=== PATIENT | female | born 1975 | race Caucasian/White ===

== ENCOUNTER 2016-09-13 10:54 | Emergency (ER) | payer SELFPAY ==
[~2016-09-13] VITALS: Ht 167.6 cm; Wt 63.5 kg
[~2016-09-13 10:54] MED LIST: ATEN50TA PO; CIPR500T78 PO; D50KC PO; DESV50TA PO; DICY10CA26 PO; FRS325T PO; GABA100C PO; HYDR-757 PO; HYDR25CA5 PO; HYDR50CA3 PO; MINO100C2 PO; NITR-65 PO; ONDN4T PO; PANT40TA2 PO; SUCR1ORA5 PO; SULF1TAB35 PO; TRAM50TA2 PO
--- NOTE | 2016-09-13 11:07 | ED Lower Extremity ---
General Stated Complaint: RIGHT ANKLE PAIN/SWELLING Source: patient Exam Limitations: no limitations History of Present Illness Time seen by provider: 11:06 Initial Comments Patient states she awakened with pain and swelling on morning and has been able to bear weight until today. She denies fevers or chills. She states that she did get up during the night about one week ago and twisted her ankle and that following morning was when it became painful Onset: last week Severity: moderate Pain/Injury Location: right ankle Modifying Factors: Worse With Movement Allergies and Home Medications Allergies Coded Allergies: cephalexin (Verified Allergy, Unknown, 11/01/13) Constitutional: see HPI, No chills, No fever EENTM: see HPI Respiratory: no symptoms reported Cardiovascular: no symptoms reported Genitourinary: no symptoms reported Musculoskeletal: see HPI Skin: no symptoms reported Psychiatric/Neurological: No Symptoms Reported Past Vjvapew-Ocfdvf-Cfwlhg Hx Patient Social History Recent Foreign Travel: No Contact w/Someone Who Travel: No Recent Hopitalizations: No Immunizations Up To Date Tetanus Booster (TDap): Unknown Date of Pneumonia Vaccine: Jun 09, 2009 Surgeries HX Surgeries: Yes ( X 1) Surgeries: Adenoidectomy, Section, Gallbladder, Tonsillectomy, Tubal Ligation Respiratory Hx Respiratory Disorders: No Cardiovascular Hx Cardiac Disorders: No Neurological Hx Neurological Disorders: No 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 System Hx 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 Disorders: Yes 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 Genitourinary Hx Genitourinary Disorders: No Gastrointestinal Hx Gastrointestinal Disorders: Yes Gastrointestinal Disorders: Gastroesophageal Reflux, C-Diff Musculoskeletal Hx Musculoskeletal Disorders: Yes Musculoskeletal Disorders: Fibromyalgia, Rheumatoid Arthritis Endocrine Hx Endocrine Disorders: No HEENT HX ENT Disorders: No Cancer Hx Cancer: No Psychosocial Hx Psychiatric Problems: Yes Behavioral Health Disorders: ADD/ADHD, Anxiety, PTSD, Depression Integumentary HX Skin/Integumentary Disorder: Yes (HX OF MRSA/ABSCESSES) Blood Transfusions Hx Blood Disorders: No Family Medical History Significant Family History: No Pertinent Family Hx Family Medial History: Cancer 19 FATHER Family history: Diabetes mellitus 19 MOTHER Family history: Hypertension 19 MOTHER Hearing loss 19 MOTHER Hypercholesterolemia 19 MOTHER Physical Exam Vital Signs Vital Sign - Last 12Hours 09/13/16 11:20 B/P (MAP) 116/80 Pulse Ox 98 Capillary Refill : General Appearance: WD/WN, no apparent distress, other (lip smacking, unable to sit still, constantly moving, talking very fast. Appears to be under the influence of a stimulant) HEENT: PERRL/EOMI, normal ENT inspection Neck: non-tender, full range of motion Respiratory: normal breath sounds, no respiratory distress, no accessory muscle use Gastrointestinal: normal bowel sounds, non tender, soft Hips: bilateral hip non-tender, bilateral hip normal inspection, bilateral hip normal range of motion Legs: bilateral leg non-tender, bilateral leg normal inspection, bilateral leg normal range of motion Knees: bilateral knee non-tender, bilateral knee normal inspection, bilateral knee normal range of motion Ankles: right ankle pain, right ankle soft tissue tenderness, right ankle swelling Feet: bilateral foot non-tender, bilateral foot normal inspection, bilateral foot normal range of motion Neurologic/Tendon: normal sensation, normal motor functions Neurologic/Psychiatric: alert, normal mood/affect, oriented x 3 Skin: normal color, warm/dry Comments She has a strong dorsalis pedis pulse Progress/Results/Core Measures Results/Orders My Orders Orders - MAINOR LANE APRN Ankle, Right, 3 Views (09/13/16 11:05) Vital Signs/I&O Vital Sign - Last 12Hours 09/13/16 11:20 B/P (MAP) 116/80 Pulse Ox 98 Departure Impression Impression: Primary Impression: Ankle sprain Disposition: 01 HOME, SELF-CARE Condition: Stable Departure-Patient Inst. Decision time for Depature: 11:46 Referrals: [facility] (PCP/Family) Primary Care Physician Patient Instructions: Ankle Sprain (DC) Add. Discharge Instructions: 1. Medication as directed 2. Crutches as needed 3. Return to ER for any worsening, worsening redness or swelling or fevers 4. See your doctor next week Scripts Naproxen (Naprosyn) 500 Mg Tablet 500 MG PO BID, #30 TAB Prov: MAINOR LANE APRN 09/13/[address] APRN Sep 13, 2016 11:07
--- NOTE | 2016-09-13 11:40 | Diagnostic Imaging Report ---
Three views of the right ankle. INDICATION: Right ankle pain. FINDINGS: There is no fracture, dislocation or radiopaque from body. There is mild medial soft tissue swelling seen. The ankle mortise is normal in configuration. There is calcaneal spur seen. IMPRESSION: No fracture seen. Dictated by: Dictated on workstation # [id number]
[2016-09-13] MEDS ORDERED: NAPR500T PO (11:47)
[2016-09-13 12:51] VITALS: BP 115/72
--- OUTSIDE RECORDS SUMMARY | 2016-10-17 21:43 | XMS REPORT | Continuity of Care Document ---
Author Author [facility] Organization [facility] Address Unknown Phone Unavailable Care Team Providers Care Manager Safe Name Role Phone [facility] OF Insurance Providers Payer Name Policy Number Subscriber Name Relationship Self Pay Lakia Gibbons 01 Self / Same As Patient Advance Directives Directive Response Recorded Date Advance Directives N 04/05/13 9:57am Health Care Power of Electromechanisms Design Drafter N 04/05/13 9:57am Organ Donor N 04/05/13 9:57am Problems No Known Problems or Medical conditions. Social History History Response Recorded Date/Time Alcohol Use Denies Use 04/05/13 9:57am Recreational Drug Use N denies 04/05/13 9 :57am Allergies, Adverse Reactions, Alerts Allergen Type Severity Reaction Last Updated Cephalexin Allergy 11/02/11 Sulfamethoxazole Allergy 11/02/11 trimethoprim Allergy 11/02/11 Medications Medication Dose Units Route Sig Qty Days Tramadol Hcl 50 Mg PO Q4H PRN 10 Ergocalciferol (Vitamin D) 42358 Unit PO TWICE WEEKLY Ferrous Sulfate (Iron) 1 Tab PO DAILY Hydroxyzine Pamoate (Hydroxyzine Pamoate 50 Mg Cap) 1 Each PO HS Hydroxyzine Pamoate (Vistaril) 25 Mg PO TID Desvenlafaxine Succinate (Pristiq) 50 Mg PO DAILY Gabapentin (Neurontin) 1 - 2 Each PO TID Dicyclomine HCl (Bentyl) 1 Each PO AC 20 Ondansetron HCl (Zofran) 1 Tab PO BID PRN 20 Atenolol (Tenormin 50 Mg) 1 Each PO DAILY Response Recorded Date/Time Status not known Unknown Results No Known Relevant Diagnostic Tests, Laboratory Data and/or Discharge Summary. Encounters Encounter Location Date/Time Departed Emergency Room [facility] 9:49am Registered Emergency Room [facility] 12:00am
--- OUTSIDE RECORDS SUMMARY | 2016-10-17 21:43 | XMS REPORT ---
Author EMILIA Ovalles [facility] eClinicalWorks Address Unknown Phone Unavailable Care Team Providers Care Shaper Set Up Operator Name Role Phone EMILIA HAM CP Unavailable Allergies, Adverse Reactions, Alerts Substance Reaction Event Type Minocycline Info Not Available Drug Allergy Doxycycline Info Not Available Drug Allergy Problems Problem Type Condition Code Onset Dates Condition Status Problem Lumbago 724.2 Active Problem Unspecified hereditary and idiopathic peripheral neuropathy 356.9 Active Problem Cellulitis and abscess of hand, except fingers and thumb 682.4 Active Problem Unspecified contraceptive management V25.9 Active Problem Migraine, unspecified without mention of intractable migraine without mention of status migrainosus 346.90 Active Problem Stye H00.019 Active Problem Esophageal reflux 530.81 Active Problem Other, multiple, and unspecified sites, insect bite, nonvenomous, without mention of infection 919.4 Active Problem Unspecified alopecia 704.00 Active Problem Rheumatoid arthritis 714.0 Active Problem Other general counseling and advice for contraceptive management V25.09 Active Problem Irregular menstrual cycle 626.4 Active Assessment Stye H00.019 Active Problem Other symptoms involving urinary system 788.99 Active Problem Surveillance of other previously prescribed contraceptive method V25.49 Active Problem Contusion of forearm 923.10 Active Problem Encounter for long-term (current) use of other medications V58.69 Active Problem Cellulitis and abscess of upper arm and forearm 682.3 Active Problem Pain in soft tissues of limb 729.5 Active Medications Medication Code System Code Instructions Start Date End Date Status Dosage Gentamicin Sulfate [facility] [address]-24 0.3 % Ophthalmic 3 times a day Mar 3 drop into affected eye PredniSONE [facility] [address]-33 10 MG Orally 2 times a day Apr 01, 2015 Apr 06, 2015 1 tablet with food or milk Procedures Procedure Coding System Code Date Office Visit, Est Pt., Level 3 CPT-4 37454 Apr 01, 2015 Vital Signs Date/Time: Apr 01, 2015 Temperature 98.3 F Weight 174.8 lbs Height 64 in BMI 30.00 Index Blood Pressure Diastolic 78 mmHg Blood Pressure Systolic 128 mmHg Cardiac Monitoring Heart Rate 104 bpm Results No Known Results Summary Purpose eClinicalWorks Submission
--- OUTSIDE RECORDS SUMMARY | 2016-10-17 21:44 | XMS REPORT ---
Author Author EMILIA HAM [facility] eClinical[employer] Address Unknown Phone Unavailable Care Team Providers Care Dimpling Machine Operator Name Role Phone EMILIA HAM Unavailable Allergies No Known Allergies Problems Problem Type Condition Code Onset Dates [...] Active Problem Irregular menstrual cycle 626.4 Active Problem Other symptoms involving urinary system [...] Instructions Start Date End Date Status Dosage Bactrim DS [facility] [address]-69 800-160 MG Orally 2 times a day Apr 04, 2015 Apr 14, 2015 1 tablet Results No Known Results Summary Purpose eClinicalWorks Submission
--- OUTSIDE RECORDS SUMMARY | 2016-10-17 21:44 | XMS REPORT ---
Author HANK Hoffmann [facility] eClinicalWorks Address Unknown Phone Unavailable Care Team Providers Care Pneumatic Tube Fitter Name Role Phone HANK HIDALGO CP Unavailable Allergies No Known Allergies Problems Problem Type Condition Code Onset Dates Condition Status Problem Rheumatoid arthritis 714.0 Active Problem Esophageal reflux 530.81 Active Problem Stye H00.019 Active Problem Irregular menstrual cycle 626.4 Active Problem Unspecified hereditary and idiopathic peripheral neuropathy 356.9 Active Problem Lumbago 724.2 Active Medications No Known Medications Results No Known Results Summary Purpose eClinicalWorks Submission
--- OUTSIDE RECORDS SUMMARY | 2016-10-17 21:44 | XMS REPORT | Continuity of Care Document ---
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 test strip, semi-quantitative NEGATIVE NEGATIVE Urine glucose detection by automated test strip NEGATIVE NEGATIVE Erythrocytes detection in urine sediment by light microscopy 1+ NEGATIVE Urine ketones detection by automated test strip NEGATIVE NEGATIVE Urine nitrite detection by test strip POSITIVE NEGATIVE Urine total bilirubin detection by test strip NEGATIVE NEGATIVE Urine urobilinogen measurement by automated test strip (mass/volume) NORMAL NORMAL Urine leukocyte esterase detection by dipstick 1+ NEGATIVE Automated urine sediment erythrocyte count by microscopy (number/high power field) NONE NRG Automated urine sediment leukocyte count by microscopy (number/high power field ) TNTC NRG Bacteria detection in urine sediment by light microscopy LARGE NRG Squamous epithelial cells detection in urine sediment by light microscopy 5-10 NRG Crystals detection in urine sediment by light microscopy NONE NRG Casts detection in urine sediment by light microscopy NONE NRG Mucus detection in urine sediment by light microscopy NEGATIVE NRG Complete urinalysis with reflex to culture YES NRG Urine drug screening test - 02/10/16 10:20 Urine phencyclidine detection by screening method NEGATIVE NEGATIVE Urine benzodiazepines detection by screening method NEGATIVE NEGATIVE Urine cocaine detection NEGATIVE NEGATIVE Urine amphetamines detection by screening method NEGATIVE NEGATIVE Urine methamphetamine detection by screening method NEGATIVE NEGATIVE Urine cannabinoids detection by screening method NEGATIVE NEGATIVE Urine opiates detection by screening method NEGATIVE NEGATIVE Urine barbiturates detection NEGATIVE NEGATIVE Screening urine tricyclic antidepressants detection NEGATIVE NEGATIVE Urine methadone detection by screening method NEGATIVE NEGATIVE Urine oxycodone detection NEGATIVE NEGATIVE Urine propoxyphene detection NEGATIVE NEGATIVE Urine buprenophrine screen NEGATIVE NEGATIVE Bacterial urine culture - 02/10/16 10:20 Bacterial urine culture [id number] NRG COLONY COUNT >100,000/ML NRG FTX;REPORTABLE SENSITIVITY REPORTED 02/11 11:25 NRG URINE CULTURE RESULTS <10,000/ML NRG FREE TEXT ENTRY 2 (2 COLONY TYPES OF E COLI ISOLATED) NRG FREE TEXT ENTRY 3 MIXED GRAM POSITIVE QUENTIN <10,000/ML NRG Bacterial susceptibility panel - 02/10/16 10:20 Gentamicin susceptibility test by minimum inhibitory concentration >= NRG Trimethoprim/sulfamethoxazole susceptibility test by minimum inhibitoryconcentration >= NRG Ampicillin susceptibility test by minimum inhibitory concentration >= NRG Tobramycin susceptibility test by minimum inhibitory concentration 8 NRG Cefazolin susceptibility test by minimum inhibitory concentration <= NRG Ceftriaxone susceptibility test by minimum inhibitory concentration <= NRG Ampicillin/sulbactam susceptibility test by minimum inhibitory concentration 16 NRG Piperacillin/tazobactam susceptibility test by minimum inhibitory concentration <= NRG Ciprofloxacin susceptibility test by minimum inhibitory concentration >= NRG Meropenem susceptibility test by minimum inhibitory concentration <= NRG Nitrofurantoin susceptibility test by minimum inhibitory concentration <= NRG Aztreonam susceptibility test by minimum inhibitory concentration <= NRG Extended spectrum beta lactamase (ESBL) producing bacteria susceptibility test by minimum inhibitory concentration - NRG Complete blood count (CBC) with automated white blood cell (WBC) differential - 02/10/16 10:30 Blood leukocytes automated count (number/volume) 10.1 10*3/ uL 4.3-11.0 Blood erythrocytes automated count (number/volume) 4.73 10*6 /uL 4.35-5.85 Venous blood hemoglobin measurement (mass/volume) 13.2 g/dL 11.5-16.0 Blood hematocrit (volume fraction) 39 % 35-52 Automated erythrocyte mean corpuscular volume 83 [foz_us] 80-99 Automated erythrocyte mean corpuscular hemoglobin (mass per erythrocyte) 28 pg 25-34 Automated erythrocyte mean corpuscular hemoglobin concentration measurement ( mass/volume) 34 g/dL 32-36 Automated erythrocyte distribution width ratio 15.2 % 10.0-14.5 Automated blood platelet count (count/volume) 247 10*3/uL 130-400 Automated blood platelet mean volume measurement 11.8 [foz_ us] 7.4-10.4 Automated blood neutrophils/100 leukocytes 76 % 42-75 Automated blood lymphocytes/100 leukocytes 15 % 12-44 Blood monocytes/100 leukocytes 8 % 0-12 Automated blood eosinophils/100 leukocytes 1 % 0-10 Automated blood basophils/100 leukocytes 0 % 0-10 Blood neutrophils automated count (number/volume) 7.7 10*3 1.8-7.8 Blood lymphocytes automated count (number/volume) 1.5 10*3 1.0-4.0 Blood monocytes automated count (number/volume) 0.8 10*3 0.0-1.0 Automated eosinophil count 0.1 10*3/uL 0.0-0.3 Automated blood basophil count (count/volume) 0.0 10*3/uL 0.0-0.1 Comprehensive metabolic panel - 02/10/16 10:30 Serum or plasma sodium measurement (moles/volume) 138 mmol/ L 135-145 Serum or plasma potassium measurement (moles/volume) 4.4 mmol/L 3.6-5.0 Serum or plasma chloride measurement (moles/volume) 107 mmol /L 98-107 Carbon dioxide 20 mmol/L 21-32 Serum or plasma anion gap determination (moles/volume) 11 mmol/L 5-14 Serum or plasma urea nitrogen measurement (mass/volume) 8 mg /dL 7-18 Serum or plasma creatinine measurement (mass/volume) 0.72 mg /dL 0.60-1.30 Serum or plasma urea nitrogen/creatinine mass ratio 11 NRG Serum or plasma creatinine measurement with calculation of estimated glomerular filtration rate > NRG Serum or plasma glucose measurement (mass/volume) 96 mg/dL 70-105 Serum or plasma calcium measurement (mass/volume) 9.5 mg/dL 8.5-10.1 Serum or plasma total bilirubin measurement (mass/volume) 0.4 mg/dL 0.1-1.0 Serum or plasma alkaline phosphatase measurement (enzymatic activity/volume) 57 U/L 40-136 Serum or plasma aspartate aminotransferase measurement (enzymatic activity/ volume) 33 U/L 5-34 Serum or plasma alanine aminotransferase measurement (enzymatic activity/volume ) 56 U/L 0-55 Serum or plasma protein measurement (mass/volume) 6.6 g/dL 6.4-8.2 Serum or plasma albumin measurement (mass/volume) 3.8 g/dL 3.2-4.5 Serum or plasma amylase measurement (enzymatic activity/volume) - 02/10/16 10: 30 Serum or plasma amylase measurement (enzymatic activity/volume) 31 U/L 25-125 Lipase - 02/10/16 10:30 Lipase 7 U/L 8-78 Serum or plasma ethanol measurement (mass/volume) - 02/10/16 10:30 Serum or plasma ethanol measurement (mass/volume) < mg/dL <10 Encounters ACCT No. Visit Date/Time Discharge Status Pt. Type Provider Facility Loc./Unit Complaint [id number] 03/15/2014 10:47:00 03/15/2014 23: 59:59 CLS Outpatient HIDALGO DO, HANK K [id number] 12/27/2013 07:01:00 12/27/2013 23: 59:59 CLS Outpatient [id number] 12/21/2013 11:39:00 12/21/2013 23: 59:59 CLS Outpatient [id number] 12/16/2013 07:46:00 12/16/2013 23: 59:59 CLS Outpatient SWAPNA CLAY MD [id number] 12/02/2013 12:41:00 12/02/2013 23: 59:59 CLS Outpatient ELIZABETH ELIANE AGUIAR [id number] 11/30/2013 10:01:00 11/30/2013 23: 59:59 CLS Outpatient HANK HIDALGO DO [id number] 11/29/2013 13:37:00 11/29/2013 23: 59:59 CLS Outpatient SHANNAN CB AGUIAR [id number] 09/28/2012 11:35:00 09/28/2012 23: 59:59 CLS Outpatient STEPHANIE ROSS PA-C [id number] 07/17/2012 10:03:00 07/17/2012 23: 59:59 CLS Outpatient HANK HIDALGO DO [id number] 05/29/2012 10:36:00 05/29/2012 23: 59:59 CLS Outpatient HANK HIDALGO DO [id number] 04/14/2012 11:05:00 04/14/2012 23:59 :59 CLS Outpatient HANK HIDALGO DO
--- OUTSIDE RECORDS SUMMARY | 2016-10-17 21:44 | XMS REPORT ---
Author Author SWAPNA CLAY [employer] Address Unknown Phone Unavailable Care Team Providers Care Healthcare Account Manager Name Role Phone SWAPNA CLAY CP Unavailable Allergies, Adverse Reactions, Alerts Substance Reaction Event Type Minocycline Info Not Available Drug Allergy Doxycycline Info Not Available Drug Allergy Problems Problem Type Condition Code Onset Dates Condition Status Assessment Acute cystitis without hematuria N30.00 Active Problem Rheumatoid arthritis 714.0 Active Problem Esophageal reflux 530.81 Active Problem Stye H00.019 Active Problem Irregular menstrual cycle 626.4 Active Assessment Dysuria R30.0 Active Problem Unspecified hereditary and idiopathic peripheral neuropathy 356.9 Active Problem Lumbago 724.2 Active Medications Medication Code System Code Instructions Start Date End Date Status Dosage Macrobid [facility] [address]-21 100 MG Orally every 12 hrs Apr 26, 2016Apr 1 capsule with food Procedures Procedure Coding System Code Date Office Visit, Est Pt., Level 2 CPT-4 96923 Apr 26, 2016 URINALYSIS, AUTO, W/O SCOPE CPT-4 50758 Apr 26, 2016 Vital Signs Date/Time: Apr 26, 2016 Cardiac Monitoring Heart Rate 98 bpm Weight 186.7 lbs Height 64 in BMI 32.04 Index Blood Pressure Diastolic 70 mmHg Blood Pressure Systolic 116 mmHg Results Name Result Date Reference Range Unit Abnormality Flag UA LONG DIP (IN HOUSE) ----SONIA 1+ 20160426 ----NIT POSITIVE 20160426 ----SG 1.020 20160426 ----KET Negative [id number] ----VINCENT Negative [id number] ----GLU Negative [id number] ----Odor Yes [id number] ----pH 7.0 20160426 ----BLO Negative [id number] ----URO 1.0 [id number] ----Protein Negative [id number] ----Lot # [id number] ----Exp date [id number] ----Clarity Clear [id number] ----Color Yellow [id number] Summary Purpose eClinicalWorks Submission
--- OUTSIDE RECORDS SUMMARY | 2016-10-17 21:45 | XMS REPORT ---
Author Author EMILIA HAM [facility] e[employer] Address Unknown Phone Unavailable Care Team Providers Care Veterinary Practitioner Name Role Phone EMILIA HAM Unavailable Allergies [...] soft tissues of limb 729.5 Active Medications No Known Medications Results No Known Results Summary Purpose eClinicalWorks Submission
--- OUTSIDE RECORDS SUMMARY | 2016-10-17 21:45 | XMS REPORT ---
Author Author EMILIA HAM [facility] e[employer] Address Unknown Phone Unavailable Care Team Providers Care Piece Maker Name Role Phone EMILIA HAM Unavailable Allergies [...]
== END 2016-09-13 12:51 | disposition home or self-care (01) ==
LOC: EDUNIT# 10:54 → ER 10:57
DX: S93.401A Sprain of unspecified ligament of right ankle, initial encounter (principal); X50.9XXA Other and unspecified overexertion or strenuous movements or postures, initial encounter; Y92.009 Unspecified place in unspecified non-institutional (private) residence as the place of occurrence of the external cause; Y99.8 Other external cause status
CPT/HCPCS: 73610; 99284

== ENCOUNTER 2018-02-15 14:05 | Emergency (ER) | payer SELFPAY ==
[~2018-02-15] VITALS: Ht 162.6 cm; Wt 81.6 kg
[~2018-02-15 14:05] MED LIST changes: +HYDR-4226 PO; -HYDR-757 PO; +NAPR-1071 PO
--- NOTE | 2018-02-15 15:06 | ED EENT ---
History of Present Illness General Chief Complaint: Dental Problems/Pain Stated Complaint: DENTAL PAIN Nursing Triage Note: ARRIVED VIA AMB TO ROOM 06. COMPLAINS OF LEFT SIDED DENTAL PAIN. WENT TO DENTIST THRDAY TO HAVE IT PULLED BUT SHE OWED $100. STATES SHE NEEDS A ABX. Source: patient Exam Limitations: no limitations History of Present Illness Date Seen by Provider: Feb 15, 2018 Time Seen by Provider: 15:04 Initial Comments Patient is a 43-year-old female who presents to the emergency room with complaints of left upper dental pain for a week. She has several dental caries and reports that she tried to make an appointment with [facility] to have it pulled but she oh to $100 on her bill and they would not see her. She thinks that she might have an infection. Denies fevers or drainage. Timing/Duration: gradual Severity: mild Location: dental Associated Symptoms: tooth pain Allergies and Home Medications Allergies Coded Allergies: cephalexin (Verified Allergy, Unknown, 11/01/13) Home Medications Amoxicillin/Potassium Clav 1 Each Tablet, 1 EACH PO BID Prescribed by: ELENO GARG on 02/15/18 1508 Patient Home Medication List Home Medication List Reviewed: Yes Review of Systems Review of Systems Constitutional: see HPI; No chills, No fever Mouth: see HPI, pain (dental pain and swelling.) All Other Systems Reviewed Negative Unless Noted: Yes Past Dtofebm-Trnxfz-Fdmduy Hx Past Med/Social Hx: Reviewed Nursing Past Med/Soc Hx Patient Social History Alcohol Use: Denies Use Recreational Drug Use: No Smoking Status: Never a Smoker Recent Foreign Travel: No Contact w/Someone Who Travel: No Recent Infectious Disease Expo: No Recent Hopitalizations: No Immunizations Up To Date Tetanus Booster (TDap): Unknown Date of Pneumonia Vaccine: Jun 09, 2009 Past Medical History Surgeries: Yes ( X 1) Adenoidectomy, Section, Gallbladder, Tonsillectomy, Tubal Ligation Respiratory: No Cardiac: No Neurological: No 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 Disorders: Yes Female 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 Disorders: 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 Gastrointestinal: Yes Gastroesophageal Reflux, C-Diff Musculoskeletal: Yes Fibromyalgia, Rheumatoid Arthritis Endocrine: No Cancer: No Psychosocial: Yes ADD/ADHD, Anxiety, PTSD, Depression Integumentary: Yes (HX OF MRSA/ABSCESSES) Blood Disorders: No Family Medical History Reviewed Nursing Family Hx Cancer 19 FATHER Family history: Diabetes mellitus 19 MOTHER Family history: Hypertension 19 MOTHER Hearing loss 19 MOTHER Hypercholesterolemia 19 MOTHER No Pertinent Family Hx Physical Exam Vital Signs Vital Signs - First Documented 02/15/18 14:47 Temp 98.0 Pulse 99 Resp 16 B/P (MAP) 141/99 (113) Pulse Ox 99 Height, Weight, BMI Height: 5'4.00" Weight: 180lbs. oz. 81.161056yh; 29.86 BMI Method:Stated General Appearance: WD/WN, no apparent distress Eyes: bilateral eye normal inspection, bilateral eye PERRL, bilateral eye EOMI Mouth/Throat: normal mouth inspection, pharynx normal, dental tenderness (left upper and noted on images.) Neck: non-tender, full range of motion, supple, normal inspection Cardiovascular: normal peripheral pulses, regular rate, rhythm, no edema, no gallop, no JVD, no murmur Respiratory: chest non-tender, lungs clear, normal breath sounds, no respiratory distress, no accessory muscle use Neurologic/Psychiatric: alert, normal mood/affect, oriented x 3 Progress/Results/Core Measures Results/Orders My Orders Vital Signs/I&O Blood Pressure Mean: 113 Progress Progress Note : Time: 15:09 Progress Note I have seen and evaluated the patient. I will be treating her dental infection with Augmentin. She reports that she does not have an allergy to this medication. She is instructed follow up with [facility] within 1 week for recheck. She agrees with the plans of care and return precautions were given. Departure Impression Primary Impression: Dental infection Disposition: 01 HOME, SELF-CARE Condition: Stable/Unchanged Departure-Patient Inst. Decision time for Depature: 15:06 Referrals: [facility] (PCP/Family) Primary Care Physician Patient Instructions: Dental Pain (DC), Tooth Abscess (DC) Add. Discharge Instructions: Take medication as directed. Follow up with [facility] within 1 week for recheck. Take ibuprofen and Tylenol as directed by the bottle for pain relief. Return back to the emergency room for worsening symptoms or concerns as needed. All discharge instructions reviewed with patient and/or family. Voiced understanding. Scripts Amoxicillin/Potassium Clav (Augmentin 875-125 Tablet) 1 Each Tablet 1 EACH PO BID for 10 Days, #20 TAB Prov: ELENO GARG 02/15/18 Images Mouth/Nose 1 - Caries, Swelling, Tenderness ELENO GARG Feb 15, 2018 15:06
[2018-02-15] MEDS ORDERED: AMOX-358 PO (15:08)
[2018-02-15] MEDS ORDERED: HYDROcodone/APAP 5 MG/325 MG (LORTAB) TAB PO ONE (15:15)
[2018-02-15] MEDS ORDERED: AUGMENTIN 875 MG TAB (AMOXICILLIN/CLAVULANATE) PO SCH (15:15)
[2018-02-15 15:20] VITALS: BP 141/99
== END 2018-02-15 15:00 | disposition home or self-care (01) ==
LOC: EDUNIT# 14:05 → ER 14:06
DX: K04.7 Periapical abscess without sinus (principal); K21.9 Gastro-esophageal reflux disease without esophagitis; M06.9 Rheumatoid arthritis, unspecified; F90.9 Attention-deficit hyperactivity disorder, unspecified type; F43.10 Post-traumatic stress disorder, unspecified; F41.9 Anxiety disorder, unspecified; F32.9 Major depressive disorder, single episode, unspecified; Z82.49 Family history of ischemic heart disease and other diseases of the circulatory system; Z88.1 Allergy status to other antibiotic agents; Z98.51 Tubal ligation status; Z90.89 Acquired absence of other organs; Z98.890 Other specified postprocedural states; Z87.19 Personal history of other diseases of the digestive system
CPT/HCPCS: 99283

== ENCOUNTER 2019-02-20 18:31 | Emergency (ER) | payer SELFPAY ==
[~2019-02-20] VITALS: Ht 162.5 cm; Wt 88.0 kg
[~2019-02-20 18:31] MED LIST changes: +AMOX-358 PO
[2019-02-20] MEDS ORDERED: SODIUM BICARB 8.4% 50 MEQ/50 ML VIAL JT ONE (18:45)
[2019-02-20] MEDS ORDERED: LIDOCAINE 1% INJ 20 ML 20 ML VIAL INJ ONE (18:45)
[2019-02-20] MEDS ORDERED: TRIM/SULFAMETH 160/800 (SEPTRA DS) TAB PO ONE (18:45)
--- NOTE | 2019-02-20 18:48 | ED Integumentary General ---
General Chief Complaint: Skin/Wound Problems Stated Complaint: THING UNDER ARM Nursing Triage Note: AREA OF CONCERN UNDER L ARM Source: patient Exam Limitations: no limitations History of Present Illness Date Seen by Provider: Feb 20, 2019 Time Seen by Provider: 18:48 Initial Comments Left axillary reddened bump for 2 days Timing/Duration: getting worse Severity: moderate Location: extremities (axilla) Associated Symptoms: denies symptoms Allergies and Home Medications Allergies Coded Allergies: cephalexin (Verified Allergy, Unknown, 11/01/13) Patient Home Medication List Home Medication List Reviewed: Yes Review of Systems Review of Systems Constitutional: see HPI EENTM: see HPI Respiratory: no symptoms reported Cardiovascular: no symptoms reported Genitourinary: no symptoms reported Musculoskeletal: no symptoms reported Skin: see HPI Psychiatric/Neurological: No Symptoms Reported Past Qlkrztz-Nzqwza-Qzwnyn Hx Patient Social History Alcohol Use: Denies Use Recreational Drug Use: No Smoking Status: Never a Smoker Recent Foreign Travel: No Contact w/Someone Who Travel: No Recent Infectious Disease Expo: No Recent Hopitalizations: No Immunizations Up To Date Tetanus Booster (TDap): Unknown Date of Pneumonia Vaccine: Jun 09, 2009 Past Medical History Surgeries: Yes ( X 1) Adenoidectomy, Section, Gallbladder, Tonsillectomy, Tubal Ligation Respiratory: No Cardiac: No Neurological: No 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 Disorders: Yes 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 Gastrointestinal: Yes Gastroesophageal Reflux, C-Diff Musculoskeletal: Yes Fibromyalgia, Rheumatoid Arthritis Endocrine: No Cancer: No Psychosocial: Yes ADD/ADHD, Anxiety, PTSD, Depression Integumentary: Yes (HX OF MRSA/ABSCESSES) Blood Disorders: No Family Medical History Cancer 19 FATHER Family history: Diabetes mellitus 19 MOTHER Family history: Hypertension 19 MOTHER Hearing loss 19 MOTHER Hypercholesterolemia 19 MOTHER No Pertinent Family Hx Physical Exam Vital Signs Vital Signs - First Documented 02/20/19 18:38 Temp 36.6 Pulse 87 Resp 18 B/P (MAP) 125/84 (98) Pulse Ox 98 O2 Delivery Room Air Capillary Refill : Less Than 3 Seconds General Appearance: WD/WN, no apparent distress Respiratory: no respiratory distress, no accessory muscle use Extremities: normal range of motion, non-tender Neurologic/Psychiatric: alert, normal mood/affect, oriented x 3 Skin: normal color, warm/dry Skin Problem Character: abscess, other (1 cm abscess of left axilla without surrounding cellulitis) Procedures/Interventions I&D : Blade Size: 11 Progress Anesthetize the overlying skin with 1 mL of 1% lidocaine without epinephrine, incised with an 11 blade scalpel, moderate amount of purulent material expressed. Progress/Results/Core Measures Results/Orders My Orders Orders - MAINOR LANE APRN Lidocaine 1% Inj 20 Ml (Xylocaine 1% Inj (02/20/19 18:45) Sodium Bicarbonate 8.4% Vial (Sodium Bic (02/20/19 18:45) Sulfamethoxazole/Trimet Ds Tab (Bactrim (02/20/19 18:45) Wound Culture (02/20/19 18:44) Medications Given in ED Current Medications Medications Dose Ordered Sig/Ryan Route Start Time Stop Time Status Last Admin Dose Admin Trimethoprim/ Sulfamethoxazole 1 ea ONCE ONCE PO 02/20/19 18:45 02/20/19 18:47 DC 02/20/19 18:51 1 EA Vital Signs/I&O 02/20/19 18:38 Temp 36.6 Pulse 87 Resp 18 B/P (MAP) 125/84 (98) Pulse Ox 98 O2 Delivery Room Air Blood Pressure Mean: 98 Departure Impression Primary Impression: Abscess Disposition: 01 HOME, SELF-CARE Condition: Stable Departure-Patient Inst. Decision time for Depature: 18:50 Ref[facility]: [facility] Primary Care Physician Patient Instructions: Skin Abscess Add. Discharge Instructions: 1. Change the dressing as needed 2. Return to ER for any concerns 3. All discharge instructions reviewed with patient and/or family. Voiced understanding. MAINOR LANE APRN Feb 20, 2019 18:48
[2019-02-20 19:02] VITALS: BP 125/84
== END 2019-02-20 19:02 | disposition home or self-care (01) ==
LOC: EDUNIT# 18:31 → ER 18:33
DX: L02.412 Cutaneous abscess of left axilla (principal); F90.9 Attention-deficit hyperactivity disorder, unspecified type; F41.9 Anxiety disorder, unspecified; F32.9 Major depressive disorder, single episode, unspecified; F43.10 Post-traumatic stress disorder, unspecified; K21.9 Gastro-esophageal reflux disease without esophagitis; M79.7 Fibromyalgia; M06.9 Rheumatoid arthritis, unspecified; Z88.1 Allergy status to other antibiotic agents; Z90.89 Acquired absence of other organs; Z98.51 Tubal ligation status; Z82.49 Family history of ischemic heart disease and other diseases of the circulatory system
CPT/HCPCS: 10060; 87070; 87077; 87186; 87205

== ENCOUNTER → 2021-08-20 | Outpatient (CLI) | payer OTHER ==
[~2021-08-20] VITALS: Ht 163 cm; Wt 94.0 kg
[~2021-08-20] MED LIST changes: +LIDOCAINE 1% INJ 20 ML VIAL INJ ONE; -MINO100C2 PO; +MINO100C5 PO; -SULF1TAB35 PO; +SULF1TAB38 PO; +TRM50T PO
--- NOTE | 2021-08-20 13:33 | Diagnostic Imaging Report ---
INDICATION: Right breast calcifications. Patient presents for a stereotactic biopsy. DETAILS OF THE PROCEDURE: The patient was brought to the mammographic suite and placed in a chair in the sitting upright position. The right breast was positioned lateral medial. The calcifications in the slightly outer right breast at mid depth were stereotactically targeted. The lateral right breast was prepped and draped in the usual sterile fashion. A small amount of 1% lidocaine was utilized for local anesthesia. An 8 gauge needle was advanced from a lateral medial approach and placed with its tip per stereotactic coordinates. Four core biopsies were obtained. A specimen radiograph was obtained demonstrating a cluster of microcalcifications within specimen labeled #4. Four additional core biopsies were obtained with only a small calcification noted within specimen labeled #10. The biopsies were performed with an 8 gauge vacuum-assisted device. All images were viewed on a dedicated workstation. A marker clip was then deployed. The needle was removed and hemostasis was obtained. A post procedure 2D CC and ML mammogram was then performed. The mammogram does show a marker clip more medial than expected on the CC view, suggestive of clip migration. IMPRESSION: Successful stereotactic biopsy of right breast calcifications. Pathology results are currently pending. Note is made that the clip does appear to be somewhat medially migrated. Dictated by: Dictated on workstation # [id number]
== END ==
LOC: RAD 12:45
PROVIDERS: ATTEND Pediatrics
DX: R92.1 Mammographic calcification found on diagnostic imaging of breast (principal)
CPT/HCPCS: 19081; A4648

== ENCOUNTER 2021-10-01 11:44 | Outpatient (RCR) | payer MEDICAID, OTHER ==
[~2021-10-01 11:44] MED LIST changes: -LIDOCAINE 1% INJ 20 ML VIAL INJ ONE
[2021-10-02] MEDS ORDERED: OMEP20TA56 PO (16:15)
[2021-10-02] MEDS ORDERED: LISI20TA26 PO (16:15)
[2021-10-02] MEDS ORDERED: CARI3CAP PO (16:15)
[2021-10-02] MEDS ORDERED: SOFO1TAB PO (16:15)
== END 2021-10-06 | disposition home or self-care (01) ==
LOC: ONC 11:44
PROVIDERS: ATTEND Internal Medicine
DX: D05.11 Intraductal carcinoma in situ of right breast (principal); F15.10 Other stimulant abuse, uncomplicated
CPT/HCPCS: 99214

== ENCOUNTER 2021-10-02 14:42 | Outpatient (CLI) | payer MEDICAID ==
[~2021-10-02] VITALS: Ht 162.5 cm; Wt 98.6 kg
[2021-10-02] MEDS ORDERED: SOFO1TAB PO (16:15)
[2021-10-02] MEDS ORDERED: LISI20TA26 PO (16:15)
[2021-10-02] MEDS ORDERED: CARI3CAP PO (16:15)
[2021-10-02] MEDS ORDERED: OMEP20TA7 PO (16:15)
== END 2021-10-02 16:42 | disposition home or self-care (01) ==
LOC: PREOP 14:42
PROVIDERS: ATTEND Surgery
DX: Z01.818 Encounter for other preprocedural examination (principal)

== ENCOUNTER → 2021-10-04 | Day surgery (SDC) | payer MEDICAID ==
[~2021-10-04] VITALS: Ht 162.6 cm; Wt 98.6 kg
[~2021-10-04] MED LIST changes: +CARI3CAP PO; +LACTATED RINGERS 1,000 ML IV PRN; +LISI20TA26 PO; +OMEP20TA56 PO; +SOFO1TAB PO; +VANCOMYCIN INJECTION 1,000 MG in NS (IVPB) 250 ML IV ONE
[2021-10-04 06:10] VITALS: BP 112/84
[2021-10-04 07:02] LABS: AMPHETAMINE SCREEN, URINE POSITIVE (NEGATIVE); BARBITURATE SCREEN URINE NEGATIVE (NEGATIVE); BENZODIAZEPINES SCREEN URINE NEGATIVE (NEGATIVE); CANNABINOID SCREEN, URINE NEGATIVE (NEGATIVE); COCAINE SCREEN URINE NEGATIVE (NEGATIVE); METHADONE STAT NEGATIVE (NEGATIVE); OPIATE SCREEN URINE NEGATIVE (NEGATIVE); OXYCODONE STAT NEGATIVE (NEGATIVE); PROPOXYPHENE STAT NEGATIVE (NEGATIVE); TRICYCLIC ANTIDEPRESSANTS SCRE NEGATIVE (NEGATIVE)
[2021-10-04 07:19] VITALS: BP 112/84
== END ==
LOC: CARD 06:03
PROVIDERS: ATTEND Surgery
DX: D05.11 Intraductal carcinoma in situ of right breast (principal); Z53.8 Procedure and treatment not carried out for other reasons
CPT/HCPCS: 80306; 84703; 87081

== ENCOUNTER → 2021-10-22 | Outpatient (CLI) | payer MEDICAID ==
[~2021-10-22] MED LIST changes: -LACTATED RINGERS 1,000 ML IV PRN; -VANCOMYCIN INJECTION 1,000 MG in NS (IVPB) 250 ML IV ONE
== END | disposition home or self-care (01) ==
LOC: PREOP 05:33
PROVIDERS: ATTEND Surgery
DX: Z01.818 Encounter for other preprocedural examination (principal)

== ENCOUNTER 2021-11-01 05:53 | Day surgery (SDC) | payer MEDICAID ==
[2021-11-01] VITALS (10 sets, daily range): BP systolic 141–174; BP diastolic 78–103
[~2021-11-01] VITALS: Ht 162.5 cm; Wt 98.6 kg
[2021-11-01] MEDS ORDERED: VANCOMYCIN INJECTION 1,000 MG in NS (IVPB) 250 ML IV ONE (06:15)
[2021-11-01 06:58] LABS: AMPHETAMINE SCREEN, URINE NEGATIVE (NEGATIVE); BARBITURATE SCREEN URINE NEGATIVE (NEGATIVE); BENZODIAZEPINES SCREEN URINE NEGATIVE (NEGATIVE); CANNABINOID SCREEN, URINE NEGATIVE (NEGATIVE); COCAINE SCREEN URINE NEGATIVE (NEGATIVE); METHADONE STAT NEGATIVE (NEGATIVE); OPIATE SCREEN URINE NEGATIVE (NEGATIVE); OXYCODONE STAT NEGATIVE (NEGATIVE); PROPOXYPHENE STAT NEGATIVE (NEGATIVE); TRICYCLIC ANTIDEPRESSANTS SCRE NEGATIVE (NEGATIVE)
[2021-11-01] MEDS ORDERED: LACTATED RINGERS 1,000 ML IV PRN (07:30)
[2021-11-01] MEDS: LACTATED RINGERS 1,000 ML IV PRN ×2 (07:45→12:05)
[2021-11-01] MEDS ORDERED: MIDAZOLAM 2 MG/2 ML (VERSED) VIAL ONE (07:55)
[2021-11-01] MEDS ORDERED: MIDAZOLAM 2 MG/2 ML (VERSED) VIAL IVP ONE (08:15)
[2021-11-01] MEDS ORDERED: LIDOCAINE 1% INJ 20 ML VIAL INJ ONE (08:15)
[2021-11-01] MEDS ORDERED: METHYLENE BLUE 0.5% (PROVAYBLUE) 50 mg/10 ml vial IV ONE (09:42)
[2021-11-01] MEDS ORDERED: fentaNYL INJ 100 MCG/2 ML AMP ONE (10:32)
[2021-11-01] MEDS ORDERED: proPOfol 200 MG/20 ML (DIPRIVAN) VIAL IV ONE (10:32)
[2021-11-01] MEDS: LIDOCAINE/EPI 2% 1:200,00 (XYLOCAINE) 20 ML VIAL ONE (11:01)
[2021-11-01] MEDS ORDERED: ONDANSETRON 4 MG/2 ML (SDV) Z0FRAN ONE (11:42)
--- NOTE | 2021-11-01 11:49 | Progress Note-Post Operative ---
Post-Operative Progess Note Surgeon (s)/Inspector Welded Parts (s) Surgeon THALIA ARAUJO DO Inspector Welded Parts: Dr. Rodriguez to assist in retraction dissection and closure. 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 Anesthesia Type general Estimated Blood Loss Estimated blood loss (mL): minimal Specimens/Packing Specimens Removed right breast lumpectomy and sentinel node THALIA ARAUJO DO November 01, 2021 11:49
[2021-11-01] MEDS ORDERED: ACHD5005 PO (11:51)
[2021-11-01] MEDS ORDERED: DOCU-143 PO (11:51)
--- NOTE | 2021-11-01 11:52 | Discharge Inst-Simple/Standard ---
Discharge Inst-Standard Discharge Medications New, Converted or Re-Newed RX: Transmitted to Pharmacy Patient Instructions/Follow Up Plan of Care/Instructions/FU: 2 weeks Dheeraj Activity as Tolerated: No Discharge Diet: Regular Diet Other Inst to Patient Follow up Appt: Make appointment for 2 week. Instructions: No lifting greater than 10 pounds. No strenuous activity. May shower in 24 hours, no tub bath or soaking. Use incentive spirometer at home as directed. No Smoking Skin/Wound Care: You have special glue over your incision that will fall off on it's own. Symptoms to Report: Appetite Changes, Extremity Discoloration, Numbness/Tingling, Swelling Increased, Bleeding Excessive, Eyesight Changes, Pain Increased, Urine Color Change, Constipation(Persistent), Fever over 101 degree F, Pain/Pressure in chest, Urinating Difficulty, Cough Up/Vomit Blood, Heart Beat Irreg/Pounding, Pain/Pressure in jaw, Vaginal Bleeding Increase, Cramps in feet or legs, Lightheadedness, Pain/Pressure in shoulder, Diarrhea(Persistent), Memory Changes Suddenly, Questions/Concerns, Weight gain consecutive days, Dizziness/Fainting, Nausea/Vomiting, Shortness of Breath, Weight gain over 2 pounds If questions or concerns contact your physician Or seek help at emergency department. THALIA ARAUJO DO November 01, 2021 11:52
--- NOTE | 2021-11-01 12:19 | Anesthesia-General Post-Op ---
General Patient Condition Mental Status/LOC: Same as Preop Cardiovascular: Satisfactory Nausea/Vomiting: Absent Respiratory: Satisfactory Pain: Controlled Complications: Absent Post Op Complications Complications None Follow Up Care/Instructions Patient Instructions None needed. Anesthesia/Patient Condition Patient Condition Patient is doing well, no complaints, stable vital signs, no apparent adverse anesthesia problems. No complications reported per nursing. CM NOLAND CRNA November 01, 2021 12:19
[2021-11-01] MEDS ORDERED: HYDROcodone/APAP 5 MG/325 MG (LORTAB) TAB ONE (12:53)
[2021-11-01] MEDS ORDERED: HYDROcodone/APAP 5 MG/325 MG (LORTAB) TAB PO ONE (13:00)
--- NOTE | 2021-11-01 13:06 | Diagnostic Imaging Report ---
INDICATION: Right breast carcinoma. Patient is status post lumpectomy. Specimen radiograph was submitted. The hookwire as well as numerous microcalcifications are located within the specimen. IMPRESSION: Adequate specimen radiograph status post lumpectomy. Dictated by: Dictated on workstation # [id number]
--- NOTE | 2021-11-01 14:04 | Diagnostic Imaging Report ---
INDICATION: Right breast DCIS. PROCEDURE: The patient presents for hook-wire localization. The patient was brought to the mammography suite, placed in a chair in the sitting upright position. The right breast was positioned lateral medial. The lateral right breast was prepped and draped in the usual sterile fashion. A small amount of 1 lidocaine was utilized for local anesthesia. The microcalcifications in the lower outer right breast were tomographically targeted. Hook-wire needle was advanced and placed through the calcifications in the lower outer right breast. Hook-wire was then deployed and the needle was removed. Follow-up 2-D CC and lateral medial mammography was performed demonstrating the hook-wire in place. This was affixed to the patient's skin. The patient tolerated the procedure well and left the department in stable condition. IMPRESSION: Successful hook-wire localization of calcifications in the lower outer right breast, as described. Dictated by: Dictated on workstation # [id number]
--- NOTE | 2021-11-01 16:03 | Diagnostic Imaging Report ---
INDICATION: Right breast carcinoma. A total of 1.01 mCi technetium 99m sulfur colloid was injected in 4 separate aliquots around the right nipple for performance of lymphoscintigraphy. Imaging was performed. There was migration of activity into the right axilla consistent with sentinel node. This was marked on the patient's skin. Patient was sent to preop in satisfactory condition. IMPRESSION: Right breast lymphoscintigraphy, as described. Dictated by: Dictated on workstation # [id number]
--- NOTE | 2021-11-01 23:21 | OPERATIVE REPORT ---
DATE OF SERVICE: 11/01/2021 PREOPERATIVE DIAGNOSIS: Ductal carcinoma in situ with microinvasion. POSTOPERATIVE DIAGNOSIS: Ductal carcinoma in situ with microinvasion. PROCEDURE: Wire localized lumpectomy with sentinel node biopsy of the right breast. SURGEON: Edgar Esqueda DO CADDIE: Dr. Rodriguez, assisted in retraction, dissection and closure. ANESTHESIA: General. ESTIMATED BLOOD LOSS: Minimal. COMPLICATIONS: None. SPECIMENS: Right breast lumpectomy and sentinel node. 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 The patient was discussed risks and benefits of procedure and wished to proceed. Consent was signed in the chart. DESCRIPTION OF PROCEDURE: The patient was taken to the operating suite. She was prepped and draped in sterile fashion. Timeout was performed. Methylene blue was used and injected in first areas around the areola, 1 mL in each location. This was then massaged for lymphatic spread for approximately 10 minutes. The patient was then prepped and draped in a sterile fashion. The [place] counter was used to isolate the sentinel node. An axillary incision was made. Cautery was used to dissect down through the subcutaneous tissues. Mike counter was continued finding the path of where the node was. The node was located in the axillary tissue with the count being 10,608, the node was purple. This was grasped and dissected around with cautery and blunt dissection until removed. Ex-vivo the count was 11,979. The axilla was then reinspected with Mike counter. There were no other nodes greater than 10% of the initial read. The area was irrigated and suctioned. No other palpable nodes. The subcutaneous tissues were then reapproximated using 3-0 Vicryl. Attention was then placed to the wire for localized lumpectomy. A scalpel was used to make an incision incorporating the wire. The breast tissue was then circumferentially dissected around the wire. Once removed, the specimen was tagged with one long suture lateral, short suture superior and two long sutures anteriorly. This was sent to radiology and confirmation of removing the wire and the calcifications. The wound was then irrigated with copious amounts of irrigation and suction. Hemostasis was achieved. The subcutaneous tissues were then reapproximated using 3-0 Vicryl. Skin was then closed using 4-0 Vicryl in a running subcuticular fashion. The areas were then washed and dried and Skin Affix was placed over the incisions. The patient tolerated the procedure well without any complications. She was taken to recovery room in stable condition. Dr. Rodriguez assisted in retraction, dissection and closure. Job ID: [id number] DocumentID: [id number] Dictated Date: 11/01/2021 14:43:13 Anesthesiology Physician Assistant Date: 11/01/2021 23:21:00 Dictated By: DO HITESH TOLEDO
== END 2021-11-01 13:42 ==
LOC: CARD 05:53
PROVIDERS: ATTEND Surgery
DX: C50.911 Malignant neoplasm of unspecified site of right female breast (principal); K21.9 Gastro-esophageal reflux disease without esophagitis; E66.9 Obesity, unspecified; F15.10 Other stimulant abuse, uncomplicated; Z68.37 Body mass index [BMI] 37.0-37.9, adult; Z87.891 Personal history of nicotine dependence
CPT/HCPCS: 19281; 19301; 38525; 76098; 78195; 80306; 84703; 87081; A4648; A9541

== ENCOUNTER 2021-11-20 13:43 | Outpatient (CLI) | payer MEDICAID ==
[~2021-11-20] VITALS: Ht 162.6 cm; Wt 101.6 kg
[~2021-11-20 13:43] MED LIST changes: +ACHD5005 PO; +DOCU-143 PO
[2021-11-20] MEDS ORDERED: FLUT9.9S NS (14:21)
[2021-11-20] MEDS ORDERED: CETI10CA PO (14:21)
== END 2021-11-20 14:51 | disposition home or self-care (01) ==
LOC: PREOP 13:43
PROVIDERS: ATTEND Surgery
DX: Z01.818 Encounter for other preprocedural examination (principal)

== ENCOUNTER 2021-11-22 07:36 | Day surgery (SDC) | payer MEDICAID ==
[~2021-11-22] VITALS: Ht 162.6 cm; Wt 101.6 kg
[2021-11-22] VITALS (7 sets, daily range): BP systolic 113–127; BP diastolic 63–90
[~2021-11-22 07:36] MED LIST changes: +CETI10CA PO; +FLUT9.9S NS
[2021-11-22 08:11] LABS: AMPHETAMINE SCREEN, URINE NEGATIVE (NEGATIVE); BARBITURATE SCREEN URINE NEGATIVE (NEGATIVE); BENZODIAZEPINES SCREEN URINE NEGATIVE (NEGATIVE); CANNABINOID SCREEN, URINE NEGATIVE (NEGATIVE); COCAINE SCREEN URINE NEGATIVE (NEGATIVE); METHADONE STAT NEGATIVE (NEGATIVE); OPIATE SCREEN URINE NEGATIVE (NEGATIVE); OXYCODONE STAT NEGATIVE (NEGATIVE); PROPOXYPHENE STAT NEGATIVE (NEGATIVE); TRICYCLIC ANTIDEPRESSANTS SCRE NEGATIVE (NEGATIVE)
--- NOTE | 2021-11-22 08:13 | Progress Note-Pre Operative ---
Pre-Operative Progress Note H&P Reviewed The H&P was reviewed, patient examined and no changes noted. Date Seen by Provider: Nov 22, 2021 Time Seen by Provider: 08:13 Date H&P Reviewed: Nov 22, 2021 Time H&P Reviewed: 08:13 Pre-Operative Diagnosis: breast cancer THALIA ARAUJO DO Nov 22, 2021 08:13
[2021-11-22] MEDS ORDERED: CLINDAMYCIN 600 MG/50 ML IVPB 50 ML IV ONE (08:36)
[2021-11-22] MEDS ORDERED: LACTATED RINGERS 1,000 ML IV PRN (09:30)
[2021-11-22] MEDS ORDERED: 0.9% SODIUM CHLORIDE PF INJ 20 ML VIAL ONE (10:24)
[2021-11-22] MEDS ORDERED: BUP/EPI 0.5% 1:200,000 (SENSORCAINE) 30 ML VIAL ONE (10:25)
[2021-11-22] MEDS ORDERED: HEParin (CENTRAL IV FLUSH) 500 UNIT/5 ML SYR ONE (10:25)
[2021-11-22] MEDS ORDERED: LIDOCAINE PF 2% 5 ML (XYLOCAINE) VIAL ONE (10:33)
[2021-11-22] MEDS ORDERED: MIDAZOLAM 2 MG/2 ML (VERSED) VIAL ONE ×2 (10:33→10:59)
[2021-11-22] MEDS ORDERED: PROPOFOL INJECTION 50 ML IV ONE (10:36)
[2021-11-22] MEDS ORDERED: VANCOMYCIN 1000 MG/VIAL ONE (10:50)
[2021-11-22] MEDS ORDERED: NS (IVPB) 250 ML ONE (10:50)
[2021-11-22] MEDS ORDERED: VANCOMYCIN INJECTION 1,000 MG in NS (IVPB) 250 ML IV ONE (11:00)
--- NOTE | 2021-11-22 11:54 | Discharge Inst-Simple/Standard ---
Discharge Inst-Standard Patient Instructions/Follow Up Plan of Care/Instructions/FU: 2 weeks Dheeraj Activity as Tolerated: No Discharge Diet: Regular Diet Other Inst to Patient Follow up Appt: Make appointment for 2 week. Instructions: No lifting greater than 10 pounds. No strenuous activity. May shower in 24 hours, no tub bath or soaking. Use incentive spirometer at home as directed. No Smoking Skin/Wound Care: You have special glue over your incision that will fall off on it's own. Ice pack on 15 min and off 30 min and repeat for first 48 hours. This reduces swelling and discomfort. Symptoms to Report: Appetite Changes, Extremity Discoloration, Numbness/Tingling, Swelling Increased, Bleeding Excessive, Eyesight Changes, Pain Increased, Urine Color Change, Constipation(Persistent), Fever over 101 degree F, Pain/Pressure in chest, Urinating Difficulty, Cough Up/Vomit Blood, Heart Beat Irreg/Pounding, Pain/Pressure in jaw, Vaginal Bleeding Increase, Cramps in feet or legs, Lightheadedness, Pain/Pressure in shoulder, Diarrhea(Persistent), Memory Changes Suddenly, Questions/Concerns, Weight gain consecutive days, Dizziness/Fainting, Nausea/Vomiting, Shortness of Breath, Weight gain over 2 pounds If questions or concerns contact your physician Or seek help at emergency department. THALIA ARAUJO DO Nov 22, 2021 11:54
--- NOTE | 2021-11-22 11:55 | Progress Note-Post Operative ---
Post-Operative Progess Note Surgeon (s)/Truck Body Repairer (s) Surgeon THALIA ARAUJO DO Truck Body Repairer: na Pre-Operative Diagnosis breast cancer Post-Operative Diagnosis same Procedure & Operative Findings Date of Procedure 11/22/21 Procedure Performed/Findings PROCEDURE: Left internal jugular port placement using ultrasound guidance. COMPLICATIONS: None. INDICATIONS: The patient is a 46 year old female with breast cancer. Patient understands the risks and benefits of port placement and wished to proceed with the procedure. Consent was signed on the chart. PROCEDURE: The patient was taken to the operating suite, was prepped and draped in the sterile fashion. A surgical pause was performed. Ultrasound was used to locate the internal jugular vein. Once located anesthetic was infiltrated above it. Using micro-access kit, the right internal vein was accessed. Dark nonpulsatile blood was withdrawn. The wire was inserted. Fluoroscopy assured proper placement. The needle was removed. The micro-access dilator was advanced over the wire and the wire was removed. The regular wire was inserted and fluoroscopy assured proper placement. The wire was then secured. Local anesthetic was used to anesthetize from the neck for tunneling down to the right chest and for pocket creation. A 15 blade scalpel was used to make an incision over the left chest. Cautery was used to dissect down to the pectoral fascia. A pocket was created with blunt dissection. The dilator sheath was then advanced over the wire under fluoroscopy and the dilator and wire were removed. The [place] catheter was inserted through the sheath and the sheath was then removed. The [place] wire was removed. The catheter was then tunneled to the right chest pocket. Fluoroscopy was used to cut to length and this was then attached to the port which was then placed within the pocket. The port was then accessed without difficulty. It was then flushed with saline and then heparin. The subcutaneous tissues were then reapproximated using 3-0 Vicryl. The areas were then washed and dried. Skin Affix was placed over incision. The insertion point of the neck Skin Affix was placed over the incision. The patient tolerated the procedure well without complication and was taken to recovery room in stable condition. Chest x-ray is pending. Anesthesia Type mac c local Estimated Blood Loss Estimated blood loss (mL): minimal Specimens/Packing Specimens Removed THALIA Santiago DO Nov 22, 2021 11:55
[2021-11-22] MEDS ORDERED: ONDANSETRON 4 MG/2 ML (SDV) Z0FRAN IVP PRN (12:15)
[2021-11-22] MEDS ORDERED: morphine INJ 10 MG/ML 1ML (SYR OR VIAL) IVP ONE (12:15)
--- NOTE | 2021-11-22 12:15 | Diagnostic Imaging Report ---
HISTORY: Status post port placement. COMPARISON: 11/01/2013. TECHNIQUE: Single frontal view of the chest. FINDINGS: The left Port-A-Cath tip projects over the upper SVC, at the junction with the innominate vein. Lung volumes are low. There is airspace opacity in the peripheral left mid lung. No pleural effusion or pneumothorax is seen. The cardiac silhouette is normal in size. IMPRESSION: 1. The left Port-A-Cath tip projects over the upper SVC. 2. Airspace opacity in the left mid lung, may represent atelectasis or infiltrate. Dictated by: Dictated on workstation # [id number]
--- NOTE | 2021-11-22 12:16 | Anesthesia-General Post-Op ---
MAC Patient Condition Mental Status/LOC: Same as Preop Cardiovascular: Satisfactory Nausea/Vomiting: Absent Respiratory: Satisfactory Pain: Controlled Complications: Absent Post Op Complications Complications None Follow Up Care/Instructions Patient Instructions None needed. Anesthesiology Discharge Order Discharge Order Patient is doing well, no complaints, stable vital signs, no apparent adverse anesthesia problems. GAIL MIRELES DO Nov 22, 2021 12:16
--- NOTE | 2021-11-22 13:23 | Diagnostic Imaging Report ---
INDICATION: Fluoroscopy during port placement. Fluoroscopy was provided in the OR during left chest wall port placement. 50 seconds of fluoroscopic time was utilized. A single image was obtained demonstrating a left chest wall port with tip overlying the SVC. IMPRESSION: Fluoroscopy during port placement. Dictated by: Dictated on workstation # [id number]
== END 2021-11-22 12:59 | disposition home or self-care (01) ==
LOC: SDC 07:36
PROVIDERS: ATTEND Surgery
DX: C50.911 Malignant neoplasm of unspecified site of right female breast (principal); I87.2 Venous insufficiency (chronic) (peripheral); E66.9 Obesity, unspecified; Z68.38 Body mass index [BMI] 38.0-38.9, adult; Z87.891 Personal history of nicotine dependence; Z88.1 Allergy status to other antibiotic agents
CPT/HCPCS: 36561; 71045; 76000; 80306; 84703; 87081; C1788

== ENCOUNTER → 2021-11-26 | Outpatient (CLI) | payer MEDICAID | LOC: CARD 11:30 | PROVIDERS: ATTEND Internal Medicine | DX: C50.911 Malignant neoplasm of unspecified site of right female breast (principal); I51.7 Cardiomegaly | CPT/HCPCS: 93306 ==

== ENCOUNTER → 2021-12-06 | Outpatient (RCR) | payer MEDICAID ==
[~2021-12-06] VITALS: Ht 162.6 cm; Wt 101.6 kg
[~2021-12-06] MED LIST changes: +ACETAMINOPHEN 325 MG TABLET PO PRN; +FAMOTIDINE 20MG/2ML IV (PEPCID) IV PRN; +HEParin (CENTRAL IV FLUSH) 500 UNIT/5 ML SYR IV PRN; +NORMAL SALINE IV SCH; +NS IV 1000 ML (CANCER CTR) IV SCH; +NS IV SCH; +PACLITAXEL IV SCH; +PALONOSETRON HCL 0.25 MG, dexAMETHasone INJECTION 10 MG in NS (IVPB) 50 ML IV SCH; +TRASTUZUMAB PKRB IV SCH; +diphenhydrAMINE 50 MG/ML INJ (BENADRYL) IV PRN
[2021-12-06 09:11] LABS: BASOPHILS % (AUTO) 0 % (0-10); EOSINOPHILS # (AUTO) 0.2 10^3/uL (0.0-0.3); EOSINOPHILS % (AUTO) 2 % (0-10); HEMATOCRIT 37 % (35-52); HEMOGLOBIN 12.3 g/dL (11.5-16.0); LYMPHOCYTES # (AUTO) 2.1 10^3/uL (1.0-4.0); LYMPHOCYTES % (AUTO) 26 % (12-44); MEAN CORPUSCULAR HEMOGLOBIN 28 pg (25-34); MEAN CORPUSCULAR HGB CONC 33 g/dL (32-36); MEAN CORPUSCULAR VOLUME 86 fL (80-99); MEAN PLATELET VOLUME 11.6 fL (9.0-12.2); MONOCYTES # (AUTO) 0.7 10^3/uL (0.0-1.0); MONOCYTES % (AUTO) 8 % (0-12); NEUTROPHILS % (AUTO) 63 % (42-75); PLATELET COUNT 242 10^3/uL (130-400); WHITE BLOOD COUNT 7.9 10^3/uL (4.3-11.0)
[2021-12-06 09:31] LABS: ALBUMIN 3.8 GM/DL (3.2-4.5); BILIRUBIN,TOTAL 0.4 MG/DL (0.1-1.0); CALCIUM 9.2 MG/DL (8.5-10.1); CREATININE SERUM 0.8 MG/DL (0.60-1.30); TOTAL PROTEIN 6.9 GM/DL (6.4-8.2)
== END | disposition home or self-care (01) ==
LOC: ONC 11-19 10:11
PROVIDERS: ATTEND Internal Medicine
DX: Z51.11 Encounter for antineoplastic chemotherapy (principal); D05.11 Intraductal carcinoma in situ of right breast; I87.2 Venous insufficiency (chronic) (peripheral)
CPT/HCPCS: 36591; 80053; 85025; 96375; 96413; 96415; 96417; 99213

== ENCOUNTER 2022-01-03 08:28 | Outpatient (RCR) | payer MEDICAID ==
[2021-12-13 09:01] LABS: BASOPHILS # (AUTO) 0.1 10^3/uL (0.0-0.1); BASOPHILS % (AUTO) 1 % (0-10); EOSINOPHILS # (AUTO) 0.2 10^3/uL (0.0-0.3); EOSINOPHILS % (AUTO) 2 % (0-10); HEMATOCRIT 36 % (35-52); HEMOGLOBIN 11.5 g/dL (11.5-16.0); LYMPHOCYTES # (AUTO) 1.5 10^3/uL (1.0-4.0); LYMPHOCYTES % (AUTO) 20 % (12-44); MEAN CORPUSCULAR HEMOGLOBIN 28 pg (25-34); MEAN CORPUSCULAR HGB CONC 32 g/dL (32-36); MEAN CORPUSCULAR VOLUME 87 fL (80-99); MEAN PLATELET VOLUME 11.6 fL (9.0-12.2); MONOCYTES # (AUTO) 0.5 10^3/uL (0.0-1.0); MONOCYTES % (AUTO) 7 % (0-12); NEUTROPHILS # (AUTO) 5.1 10^3/uL (1.8-7.8); NEUTROPHILS % (AUTO) 69 % (42-75); PLATELET COUNT 234 10^3/uL (130-400); WHITE BLOOD COUNT 7.3 10^3/uL (4.3-11.0)
[2021-12-13 09:19] LABS: ALBUMIN 3.9 GM/DL (3.2-4.5); BILIRUBIN,TOTAL 0.3 MG/DL (0.1-1.0); CALCIUM 9.5 MG/DL (8.5-10.1); CREATININE SERUM 0.77 MG/DL (0.60-1.30); POTASSIUM 4.5 MMOL/L (3.6-5.0); TOTAL PROTEIN 6.8 GM/DL (6.4-8.2)
[2021-12-20 08:48] LABS: BASOPHILS % (AUTO) 1 % (0-10); EOSINOPHILS # (AUTO) 0.2 10^3/uL (0.0-0.3); EOSINOPHILS % (AUTO) 3 % (0-10); HEMATOCRIT 36 % (35-52); HEMOGLOBIN 11.5 g/dL (11.5-16.0); LYMPHOCYTES # (AUTO) 1.7 10^3/uL (1.0-4.0); LYMPHOCYTES % (AUTO) 25 % (12-44); MEAN CORPUSCULAR HEMOGLOBIN 28 pg (25-34); MEAN CORPUSCULAR HGB CONC 32 g/dL (32-36); MEAN CORPUSCULAR VOLUME 87 fL (80-99); MEAN PLATELET VOLUME 11.2 fL (9.0-12.2); MONOCYTES # (AUTO) 0.6 10^3/uL (0.0-1.0); MONOCYTES % (AUTO) 9 % (0-12); NEUTROPHILS # (AUTO) 4.1 10^3/uL (1.8-7.8); NEUTROPHILS % (AUTO) 62 % (42-75); PLATELET COUNT 281 10^3/uL (130-400); WHITE BLOOD COUNT 6.7 10^3/uL (4.3-11.0)
[2021-12-20 09:07] LABS: ALBUMIN 3.9 GM/DL (3.2-4.5); BILIRUBIN,TOTAL 0.5 MG/DL (0.1-1.0); CALCIUM 9.1 MG/DL (8.5-10.1); CREATININE SERUM 0.8 MG/DL (0.60-1.30); POTASSIUM 4.3 MMOL/L (3.6-5.0); TOTAL PROTEIN 6.8 GM/DL (6.4-8.2)
[2021-12-27 09:12] LABS: BASOPHILS % (AUTO) 1 % (0-10); EOSINOPHILS # (AUTO) 0.1 10^3/uL (0.0-0.3); EOSINOPHILS % (AUTO) 1 % (0-10); HEMATOCRIT 35 % (35-52); HEMOGLOBIN 11.3 g/dL (11.5-16.0); LYMPHOCYTES # (AUTO) 1.4 10^3/uL (1.0-4.0); LYMPHOCYTES % (AUTO) 19 % (12-44); MEAN CORPUSCULAR HEMOGLOBIN 28 pg (25-34); MEAN CORPUSCULAR HGB CONC 33 g/dL (32-36); MEAN CORPUSCULAR VOLUME 87 fL (80-99); MEAN PLATELET VOLUME 10.9 fL (9.0-12.2); MONOCYTES # (AUTO) 0.7 10^3/uL (0.0-1.0); MONOCYTES % (AUTO) 10 % (0-12); NEUTROPHILS % (AUTO) 68 % (42-75); PLATELET COUNT 309 10^3/uL (130-400); WHITE BLOOD COUNT 7.3 10^3/uL (4.3-11.0)
[2021-12-27 09:36] LABS: ALBUMIN 3.7 GM/DL (3.2-4.5); BILIRUBIN,TOTAL 0.4 MG/DL (0.1-1.0); CALCIUM 9.2 MG/DL (8.5-10.1); CREATININE SERUM 0.73 MG/DL (0.60-1.30); POTASSIUM 4.1 MMOL/L (3.6-5.0); TOTAL PROTEIN 6.5 GM/DL (6.4-8.2)
[~2022-01-03 08:28] MED LIST changes: +ALTEPLASE 2 MG (CATHFLO) IV ONE
[2022-01-03 08:48] LABS: BASOPHILS # (AUTO) 0.1 10^3/uL (0.0-0.1); BASOPHILS % (AUTO) 1 % (0-10); EOSINOPHILS # (AUTO) 0.1 10^3/uL (0.0-0.3); EOSINOPHILS % (AUTO) 1 % (0-10); HEMATOCRIT 33 % (35-52); HEMOGLOBIN 10.7 g/dL (11.5-16.0); LYMPHOCYTES # (AUTO) 1.7 10^3/uL (1.0-4.0); LYMPHOCYTES % (AUTO) 25 % (12-44); MEAN CORPUSCULAR HEMOGLOBIN 28 pg (25-34); MEAN CORPUSCULAR HGB CONC 32 g/dL (32-36); MEAN CORPUSCULAR VOLUME 87 fL (80-99); MEAN PLATELET VOLUME 11.2 fL (9.0-12.2); MONOCYTES # (AUTO) 0.6 10^3/uL (0.0-1.0); MONOCYTES % (AUTO) 8 % (0-12); NEUTROPHILS # (AUTO) 4.6 10^3/uL (1.8-7.8); NEUTROPHILS % (AUTO) 65 % (42-75); PLATELET COUNT 301 10^3/uL (130-400); WHITE BLOOD COUNT 7.1 10^3/uL (4.3-11.0)
[2022-01-03 09:08] LABS: ALBUMIN 3.6 GM/DL (3.2-4.5); BILIRUBIN,TOTAL 0.4 MG/DL (0.1-1.0); CALCIUM 9.1 MG/DL (8.5-10.1); CREATININE SERUM 0.92 MG/DL (0.60-1.30); POTASSIUM 3.8 MMOL/L (3.6-5.0); TOTAL PROTEIN 6.1 GM/DL (6.4-8.2)
[2022-01-03] MEDS ORDERED: ACETAMINOPHEN 325 MG TABLET ONE (09:18)
== END 2022-01-06 | disposition home or self-care (01) ==
LOC: ONC 08:28
PROVIDERS: ATTEND Internal Medicine
DX: Z51.11 Encounter for antineoplastic chemotherapy (principal); Z45.2 Encounter for adjustment and management of vascular access device; D05.11 Intraductal carcinoma in situ of right breast; L23.9 Allergic contact dermatitis, unspecified cause; F19.10 Other psychoactive substance abuse, uncomplicated
CPT/HCPCS: 36415; 36591; 36593; 80053; 85025; 96375; 96413; 96417; 96523; 99213

== ENCOUNTER 2022-01-31 08:36 | Outpatient (RCR) | payer MEDICAID ==
[2022-01-10 08:55] LABS: BASOPHILS # (AUTO) 0.1 10^3/uL (0.0-0.1); BASOPHILS % (AUTO) 1 % (0-10); EOSINOPHILS # (AUTO) 0.1 10^3/uL (0.0-0.3); EOSINOPHILS % (AUTO) 1 % (0-10); HEMATOCRIT 35 % (35-52); HEMOGLOBIN 11.7 g/dL (11.5-16.0); LYMPHOCYTES # (AUTO) 1.9 10^3/uL (1.0-4.0); LYMPHOCYTES % (AUTO) 23 % (12-44); MEAN CORPUSCULAR HEMOGLOBIN 29 pg (25-34); MEAN CORPUSCULAR HGB CONC 33 g/dL (32-36); MEAN CORPUSCULAR VOLUME 87 fL (80-99); MEAN PLATELET VOLUME 11.4 fL (9.0-12.2); MONOCYTES # (AUTO) 0.7 10^3/uL (0.0-1.0); MONOCYTES % (AUTO) 8 % (0-12); NEUTROPHILS # (AUTO) 5.6 10^3/uL (1.8-7.8); NEUTROPHILS % (AUTO) 66 % (42-75); PLATELET COUNT 278 10^3/uL (130-400); WHITE BLOOD COUNT 8.5 10^3/uL (4.3-11.0)
[2022-01-10 09:22] LABS: ALBUMIN 3.8 GM/DL (3.2-4.5); BILIRUBIN,TOTAL 0.4 MG/DL (0.1-1.0); POTASSIUM 4.3 MMOL/L (3.6-5.0); TOTAL PROTEIN 6.4 GM/DL (6.4-8.2)
[2022-01-14 09:42] LABS: BASOPHILS % (AUTO) 1 % (0-10); EOSINOPHILS # (AUTO) 0.1 10^3/uL (0.0-0.3); EOSINOPHILS % (AUTO) 1 % (0-10); HEMATOCRIT 36 % (35-52); HEMOGLOBIN 12.1 g/dL (11.5-16.0); LYMPHOCYTES # (AUTO) 1.4 10^3/uL (1.0-4.0); LYMPHOCYTES % (AUTO) 23 % (12-44); MEAN CORPUSCULAR HEMOGLOBIN 29 pg (25-34); MEAN CORPUSCULAR HGB CONC 34 g/dL (32-36); MEAN CORPUSCULAR VOLUME 85 fL (80-99); MONOCYTES # (AUTO) 0.3 10^3/uL (0.0-1.0); MONOCYTES % (AUTO) 5 % (0-12); NEUTROPHILS # (AUTO) 4.3 10^3/uL (1.8-7.8); NEUTROPHILS % (AUTO) 71 % (42-75); PLATELET COUNT 251 10^3/uL (130-400); WHITE BLOOD COUNT 6.1 10^3/uL (4.3-11.0)
[2022-01-14 10:02] LABS: ALBUMIN 3.8 GM/DL (3.2-4.5); BILIRUBIN,TOTAL 0.6 MG/DL (0.1-1.0); CALCIUM 9.3 MG/DL (8.5-10.1); CREATININE SERUM 0.76 MG/DL (0.60-1.30); POTASSIUM 4.2 MMOL/L (3.6-5.0); TOTAL PROTEIN 6.5 GM/DL (6.4-8.2)
[2022-01-17 08:59] LABS: BASOPHILS % (AUTO) 1 % (0-10); EOSINOPHILS % (AUTO) 2 % (0-10); HEMATOCRIT 34 % (35-52); HEMOGLOBIN 11.3 g/dL (11.5-16.0); LYMPHOCYTES # (AUTO) 1.7 10^3/uL (1.0-4.0); LYMPHOCYTES % (AUTO) 23 % (12-44); MEAN CORPUSCULAR HEMOGLOBIN 29 pg (25-34); MEAN CORPUSCULAR HGB CONC 33 g/dL (32-36); MEAN CORPUSCULAR VOLUME 87 fL (80-99); MEAN PLATELET VOLUME 11.6 fL (9.0-12.2); MONOCYTES # (AUTO) 0.6 10^3/uL (0.0-1.0); MONOCYTES % (AUTO) 8 % (0-12); NEUTROPHILS # (AUTO) 4.9 10^3/uL (1.8-7.8); NEUTROPHILS % (AUTO) 66 % (42-75); PLATELET COUNT 299 10^3/uL (130-400); WHITE BLOOD COUNT 7.5 10^3/uL (4.3-11.0)
[2022-01-17 09:00] LABS: EOSINOPHILS # (AUTO) 0.1 10^3/uL (0.0-0.3)
[2022-01-17 09:26] LABS: ALBUMIN 3.8 GM/DL (3.2-4.5); BILIRUBIN,TOTAL 0.5 MG/DL (0.1-1.0); CALCIUM 9.4 MG/DL (8.5-10.1); CREATININE SERUM 0.89 MG/DL (0.60-1.30); POTASSIUM 4.1 MMOL/L (3.6-5.0); TOTAL PROTEIN 6.5 GM/DL (6.4-8.2)
[2022-01-24 08:51] LABS: BASOPHILS # (AUTO) 0.1 10^3/uL (0.0-0.1); BASOPHILS % (AUTO) 1 % (0-10); EOSINOPHILS # (AUTO) 0.2 10^3/uL (0.0-0.3); EOSINOPHILS % (AUTO) 2 % (0-10); HEMATOCRIT 34 % (35-52); HEMOGLOBIN 11.2 g/dL (11.5-16.0); LYMPHOCYTES # (AUTO) 1.5 10^3/uL (1.0-4.0); LYMPHOCYTES % (AUTO) 21 % (12-44); MEAN CORPUSCULAR HEMOGLOBIN 29 pg (25-34); MEAN CORPUSCULAR HGB CONC 33 g/dL (32-36); MEAN CORPUSCULAR VOLUME 88 fL (80-99); MONOCYTES # (AUTO) 0.6 10^3/uL (0.0-1.0); MONOCYTES % (AUTO) 8 % (0-12); NEUTROPHILS % (AUTO) 67 % (42-75); PLATELET COUNT 303 10^3/uL (130-400); WHITE BLOOD COUNT 7.4 10^3/uL (4.3-11.0)
[2022-01-24 09:12] LABS: ALBUMIN 3.8 GM/DL (3.2-4.5); BILIRUBIN,TOTAL 0.3 MG/DL (0.1-1.0); CALCIUM 9.5 MG/DL (8.5-10.1); CREATININE SERUM 0.88 MG/DL (0.60-1.30); POTASSIUM 4.3 MMOL/L (3.6-5.0); TOTAL PROTEIN 6.5 GM/DL (6.4-8.2)
[~2022-01-31 08:36] MED LIST changes: -ALTEPLASE 2 MG (CATHFLO) IV ONE
[2022-01-31 09:16] LABS: BASOPHILS % (AUTO) 0 % (0-10); EOSINOPHILS # (AUTO) 0.1 10^3/uL (0.0-0.3); EOSINOPHILS % (AUTO) 1 % (0-10); HEMATOCRIT 36 % (35-52); HEMOGLOBIN 11.9 g/dL (11.5-16.0); LYMPHOCYTES # (AUTO) 1.5 10^3/uL (1.0-4.0); LYMPHOCYTES % (AUTO) 18 % (12-44); MEAN CORPUSCULAR HEMOGLOBIN 28 pg (25-34); MEAN CORPUSCULAR HGB CONC 33 g/dL (32-36); MEAN CORPUSCULAR VOLUME 86 fL (80-99); MEAN PLATELET VOLUME 11.1 fL (9.0-12.2); MONOCYTES # (AUTO) 0.6 10^3/uL (0.0-1.0); MONOCYTES % (AUTO) 7 % (0-12); NEUTROPHILS # (AUTO) 6.3 10^3/uL (1.8-7.8); NEUTROPHILS % (AUTO) 74 % (42-75); PLATELET COUNT 265 10^3/uL (130-400); WHITE BLOOD COUNT 8.5 10^3/uL (4.3-11.0)
[2022-01-31 09:25] LABS: ALBUMIN 3.9 GM/DL (3.2-4.5)
[2022-01-31 09:26] LABS: CALCIUM 9.6 MG/DL (8.5-10.1)
[2022-01-31 09:29] LABS: BILIRUBIN,TOTAL 0.5 MG/DL (0.1-1.0)
[2022-01-31 09:31] LABS: CREATININE SERUM 0.84 MG/DL (0.60-1.30)
== END 2022-02-06 14:06 | disposition home or self-care (01) ==
LOC: ONC 08:36
PROVIDERS: ATTEND Internal Medicine
DX: Z51.11 Encounter for antineoplastic chemotherapy (principal); Z45.2 Encounter for adjustment and management of vascular access device; D05.11 Intraductal carcinoma in situ of right breast
CPT/HCPCS: 36591; 80053; 85025; 96375; 96413; 96417; 99213

== ENCOUNTER → 2022-02-18 | Outpatient (CLI) | payer MEDICAID ==
[~2022-02-18] MED LIST changes: -ACETAMINOPHEN 325 MG TABLET PO PRN; -FAMOTIDINE 20MG/2ML IV (PEPCID) IV PRN; -HEParin (CENTRAL IV FLUSH) 500 UNIT/5 ML SYR IV PRN; -NORMAL SALINE IV SCH; -NS IV 1000 ML (CANCER CTR) IV SCH; -NS IV SCH; -PACLITAXEL IV SCH; -PALONOSETRON HCL 0.25 MG, dexAMETHasone INJECTION 10 MG in NS (IVPB) 50 ML IV SCH; -TRASTUZUMAB PKRB IV SCH; -diphenhydrAMINE 50 MG/ML INJ (BENADRYL) IV PRN
== END ==
LOC: CARD 11:00
PROVIDERS: ATTEND Internal Medicine
DX: C50.911 Malignant neoplasm of unspecified site of right female breast (principal)
CPT/HCPCS: 93308

== ENCOUNTER 2022-02-25 10:41 | Outpatient (RCR) | payer MEDICAID ==
[2022-02-07 09:00] LABS: BASOPHILS % (AUTO) 1 % (0-10); EOSINOPHILS # (AUTO) 0.2 10^3/uL (0.0-0.3); EOSINOPHILS % (AUTO) 2 % (0-10); HEMATOCRIT 34 % (35-52); HEMOGLOBIN 11.2 g/dL (11.5-16.0); LYMPHOCYTES # (AUTO) 1.5 10^3/uL (1.0-4.0); LYMPHOCYTES % (AUTO) 22 % (12-44); MEAN CORPUSCULAR HEMOGLOBIN 29 pg (25-34); MEAN CORPUSCULAR HGB CONC 33 g/dL (32-36); MEAN CORPUSCULAR VOLUME 87 fL (80-99); MONOCYTES # (AUTO) 0.5 10^3/uL (0.0-1.0); MONOCYTES % (AUTO) 7 % (0-12); NEUTROPHILS # (AUTO) 4.5 10^3/uL (1.8-7.8); NEUTROPHILS % (AUTO) 67 % (42-75); PLATELET COUNT 284 10^3/uL (130-400); WHITE BLOOD COUNT 6.7 10^3/uL (4.3-11.0)
[2022-02-07 09:27] LABS: ALBUMIN 3.5 GM/DL (3.2-4.5); BILIRUBIN,TOTAL 0.4 MG/DL (0.1-1.0); CALCIUM 8.9 MG/DL (8.5-10.1); CREATININE SERUM 0.79 MG/DL (0.60-1.30); POTASSIUM 3.9 MMOL/L (3.6-5.0); TOTAL PROTEIN 6.3 GM/DL (6.4-8.2)
[2022-02-14 08:47] LABS: BASOPHILS % (AUTO) 1 % (0-10); EOSINOPHILS # (AUTO) 0.1 10^3/uL (0.0-0.3); EOSINOPHILS % (AUTO) 2 % (0-10); HEMATOCRIT 33 % (35-52); HEMOGLOBIN 10.9 g/dL (11.5-16.0); LYMPHOCYTES # (AUTO) 1.6 10^3/uL (1.0-4.0); LYMPHOCYTES % (AUTO) 22 % (12-44); MEAN CORPUSCULAR HEMOGLOBIN 29 pg (25-34); MEAN CORPUSCULAR HGB CONC 34 g/dL (32-36); MEAN CORPUSCULAR VOLUME 87 fL (80-99); MEAN PLATELET VOLUME 11.1 fL (9.0-12.2); MONOCYTES # (AUTO) 0.5 10^3/uL (0.0-1.0); MONOCYTES % (AUTO) 7 % (0-12); NEUTROPHILS # (AUTO) 4.8 10^3/uL (1.8-7.8); NEUTROPHILS % (AUTO) 66 % (42-75); PLATELET COUNT 290 10^3/uL (130-400); WHITE BLOOD COUNT 7.3 10^3/uL (4.3-11.0)
[2022-02-14 09:05] LABS: ALBUMIN 3.4 GM/DL (3.2-4.5); BILIRUBIN,TOTAL 0.4 MG/DL (0.1-1.0); CALCIUM 9.2 MG/DL (8.5-10.1); CREATININE SERUM 0.74 MG/DL (0.60-1.30); POTASSIUM 4.4 MMOL/L (3.6-5.0); TOTAL PROTEIN 6.2 GM/DL (6.4-8.2)
[2022-02-21 09:02] LABS: BASOPHILS % (AUTO) 0 % (0-10); EOSINOPHILS % (AUTO) 1 % (0-10); HEMATOCRIT 36 % (35-52); HEMOGLOBIN 11.9 g/dL (11.5-16.0); LYMPHOCYTES # (AUTO) 1.3 10^3/uL (1.0-4.0); LYMPHOCYTES % (AUTO) 25 % (12-44); MEAN CORPUSCULAR HEMOGLOBIN 29 pg (25-34); MEAN CORPUSCULAR HGB CONC 33 g/dL (32-36); MEAN CORPUSCULAR VOLUME 86 fL (80-99); MEAN PLATELET VOLUME 11.1 fL (9.0-12.2); MONOCYTES # (AUTO) 0.5 10^3/uL (0.0-1.0); MONOCYTES % (AUTO) 10 % (0-12); NEUTROPHILS # (AUTO) 3.4 10^3/uL (1.8-7.8); NEUTROPHILS % (AUTO) 63 % (42-75); PLATELET COUNT 324 10^3/uL (130-400); WHITE BLOOD COUNT 5.4 10^3/uL (4.3-11.0)
[2022-02-21 09:29] LABS: ALBUMIN 4.2 GM/DL (3.2-4.5); BILIRUBIN,TOTAL 0.5 MG/DL (0.1-1.0); CALCIUM 9.3 MG/DL (8.5-10.1); CREATININE SERUM 0.89 MG/DL (0.60-1.30); TOTAL PROTEIN 7.2 GM/DL (6.4-8.2)
[~2022-02-25 10:41] MED LIST changes: +ACETAMINOPHEN 325 MG TABLET PO PRN; +FAMOTIDINE 20MG/2ML IV (PEPCID) IV PRN; +HEParin (CENTRAL IV FLUSH) 500 UNIT/5 ML SYR IV PRN; +NORMAL SALINE IV SCH; +NS IV 1000 ML (CANCER CTR) IV SCH; +NS IV SCH; +PACLITAXEL IV SCH; +PALONOSETRON HCL 0.25 MG, dexAMETHasone INJECTION 10 MG in NS (IVPB) 50 ML IV SCH; +TRASTUZUMAB PKRB IV SCH; +diphenhydrAMINE 50 MG/ML INJ (BENADRYL) IV PRN
[2022-02-27] MEDS ORDERED: NS IV SCH (14:45)
[2022-02-27] MEDS ORDERED: TRASTUZUMAB PKRB IV SCH (14:45)
== END 2022-03-07 09:32 | disposition home or self-care (01) ==
LOC: ONC 10:41
PROVIDERS: ATTEND Internal Medicine
DX: Z51.11 Encounter for antineoplastic chemotherapy (principal); Z45.2 Encounter for adjustment and management of vascular access device; C50.911 Malignant neoplasm of unspecified site of right female breast
CPT/HCPCS: 36591; 80053; 85025; 96375; 96413; 96417; 99213

== ENCOUNTER → 2022-04-08 | Outpatient (RCR) | payer MEDICAID ==
[2022-03-14 09:09] LABS: BASOPHILS % (AUTO) 0 % (0-10); EOSINOPHILS # (AUTO) 0.2 10^3/uL (0.0-0.3); EOSINOPHILS % (AUTO) 3 % (0-10); HEMATOCRIT 34 % (35-52); LYMPHOCYTES # (AUTO) 1.3 10^3/uL (1.0-4.0); LYMPHOCYTES % (AUTO) 18 % (12-44); MEAN CORPUSCULAR HEMOGLOBIN 29 pg (25-34); MEAN CORPUSCULAR HGB CONC 32 g/dL (32-36); MEAN CORPUSCULAR VOLUME 89 fL (80-99); MEAN PLATELET VOLUME 11.4 fL (9.0-12.2); MONOCYTES # (AUTO) 0.7 10^3/uL (0.0-1.0); MONOCYTES % (AUTO) 10 % (0-12); NEUTROPHILS # (AUTO) 4.9 10^3/uL (1.8-7.8); NEUTROPHILS % (AUTO) 69 % (42-75); PLATELET COUNT 258 10^3/uL (130-400); WHITE BLOOD COUNT 7.1 10^3/uL (4.3-11.0)
[2022-03-14 09:38] LABS: ALBUMIN 3.5 GM/DL (3.2-4.5); BILIRUBIN,TOTAL 0.3 MG/DL (0.1-1.0); CALCIUM 8.8 MG/DL (8.5-10.1); CREATININE SERUM 0.78 MG/DL (0.60-1.30); POTASSIUM 4.3 MMOL/L (3.6-5.0); TOTAL PROTEIN 6.1 GM/DL (6.4-8.2)
[2022-04-04 09:11] LABS: BASOPHILS % (AUTO) 0 % (0-10); EOSINOPHILS # (AUTO) 0.1 10^3/uL (0.0-0.3); EOSINOPHILS % (AUTO) 2 % (0-10); HEMATOCRIT 36 % (35-52); HEMOGLOBIN 11.8 g/dL (11.5-16.0); LYMPHOCYTES % (AUTO) 13 % (12-44); MEAN CORPUSCULAR HEMOGLOBIN 29 pg (25-34); MEAN CORPUSCULAR HGB CONC 33 g/dL (32-36); MEAN CORPUSCULAR VOLUME 86 fL (80-99); MEAN PLATELET VOLUME 11.7 fL (9.0-12.2); MONOCYTES # (AUTO) 0.7 10^3/uL (0.0-1.0); MONOCYTES % (AUTO) 10 % (0-12); NEUTROPHILS # (AUTO) 5.5 10^3/uL (1.8-7.8); NEUTROPHILS % (AUTO) 75 % (42-75); PLATELET COUNT 229 10^3/uL (130-400); WHITE BLOOD COUNT 7.4 10^3/uL (4.3-11.0)
[2022-04-04 09:33] LABS: ALBUMIN 3.8 GM/DL (3.2-4.5); BILIRUBIN,TOTAL 0.4 MG/DL (0.1-1.0); CALCIUM 9.1 MG/DL (8.5-10.1); CREATININE SERUM 0.74 MG/DL (0.60-1.30); POTASSIUM 3.7 MMOL/L (3.6-5.0); TOTAL PROTEIN 6.8 GM/DL (6.4-8.2)
[~2022-04-08] MED LIST changes: +ACETAMINOPHEN 325 MG TABLET ONE; -ACETAMINOPHEN 325 MG TABLET PO PRN; -FAMOTIDINE 20MG/2ML IV (PEPCID) IV PRN; -NORMAL SALINE IV SCH; -NS IV 1000 ML (CANCER CTR) IV SCH; +NS IV 500 ML 500 ML IV SCH; -PACLITAXEL IV SCH; -PALONOSETRON HCL 0.25 MG, dexAMETHasone INJECTION 10 MG in NS (IVPB) 50 ML IV SCH; -diphenhydrAMINE 50 MG/ML INJ (BENADRYL) IV PRN; +diphenhydrAMINE 50 MG/ML INJ (BENADRYL) ONE
== END | disposition home or self-care (01) ==
LOC: ONC 03-11 08:30
PROVIDERS: ATTEND Internal Medicine
DX: Z51.0 Encounter for antineoplastic radiation therapy (principal); C50.911 Malignant neoplasm of unspecified site of right female breast; F19.10 Other psychoactive substance abuse, uncomplicated
CPT/HCPCS: 36591; 77280; 77290; 77295; 77300; 77307; 77334; 77336; 77417; 80053; 85025; 96375; 96413; 96415; 99204; 99205

== ENCOUNTER 2022-04-25 08:40 | Outpatient (RCR) | payer MEDICAID ==
[~2022-04-25 08:40] MED LIST changes: -ACETAMINOPHEN 325 MG TABLET ONE; +ACETAMINOPHEN 325 MG TABLET PO PRN; +diphenhydrAMINE 50 MG/ML INJ (BENADRYL) IV PRN; -diphenhydrAMINE 50 MG/ML INJ (BENADRYL) ONE
[2022-04-25 09:07] LABS: BASOPHILS % (AUTO) 1 % (0-10); EOSINOPHILS # (AUTO) 0.3 10^3/uL (0.0-0.3); EOSINOPHILS % (AUTO) 4 % (0-10); HEMATOCRIT 39 % (35-52); HEMOGLOBIN 12.7 g/dL (11.5-16.0); LYMPHOCYTES # (AUTO) 1.3 10^3/uL (1.0-4.0); LYMPHOCYTES % (AUTO) 21 % (12-44); MEAN CORPUSCULAR HEMOGLOBIN 28 pg (25-34); MEAN CORPUSCULAR HGB CONC 33 g/dL (32-36); MEAN CORPUSCULAR VOLUME 86 fL (80-99); MEAN PLATELET VOLUME 11.9 fL (9.0-12.2); MONOCYTES # (AUTO) 0.7 10^3/uL (0.0-1.0); MONOCYTES % (AUTO) 11 % (0-12); NEUTROPHILS % (AUTO) 63 % (42-75); PLATELET COUNT 229 10^3/uL (130-400); WHITE BLOOD COUNT 6.4 10^3/uL (4.3-11.0)
[2022-04-25 09:21] LABS: ALBUMIN 3.8 GM/DL (3.2-4.5); BILIRUBIN,TOTAL 0.3 MG/DL (0.1-1.0); CALCIUM 9.2 MG/DL (8.5-10.1); CREATININE SERUM 0.77 MG/DL (0.60-1.30); POTASSIUM 3.9 MMOL/L (3.6-5.0); TOTAL PROTEIN 6.8 GM/DL (6.4-8.2)
== END 2022-05-08 | disposition home or self-care (01) ==
LOC: ONC 08:40
PROVIDERS: ATTEND Internal Medicine
DX: Z51.0 Encounter for antineoplastic radiation therapy (principal); C50.911 Malignant neoplasm of unspecified site of right female breast
CPT/HCPCS: 77412; G0463; 36591; 77336; 77470; 80053; 85025; 96375; 96413; 99213

== ENCOUNTER 2022-06-04 08:35 | Outpatient (RCR) | payer MEDICAID ==
[2022-05-15 09:12] LABS: BASOPHILS % (AUTO) 1 % (0-10); EOSINOPHILS # (AUTO) 0.2 10^3/uL (0.0-0.3); EOSINOPHILS % (AUTO) 3 % (0-10); HEMATOCRIT 37 % (35-52); HEMOGLOBIN 11.9 g/dL (11.5-16.0); LYMPHOCYTES % (AUTO) 15 % (12-44); MEAN CORPUSCULAR HEMOGLOBIN 28 pg (25-34); MEAN CORPUSCULAR HGB CONC 32 g/dL (32-36); MEAN CORPUSCULAR VOLUME 86 fL (80-99); MEAN PLATELET VOLUME 11.5 fL (9.0-12.2); MONOCYTES # (AUTO) 0.7 10^3/uL (0.0-1.0); MONOCYTES % (AUTO) 11 % (0-12); NEUTROPHILS # (AUTO) 4.5 10^3/uL (1.8-7.8); NEUTROPHILS % (AUTO) 70 % (42-75); PLATELET COUNT 218 10^3/uL (130-400); WHITE BLOOD COUNT 6.5 10^3/uL (4.3-11.0)
[2022-05-15 09:30] LABS: ALBUMIN 3.5 GM/DL (3.2-4.5); BILIRUBIN,TOTAL 0.2 MG/DL (0.1-1.0); CALCIUM 8.9 MG/DL (8.5-10.1); CREATININE SERUM 0.77 MG/DL (0.60-1.30); POTASSIUM 3.8 MMOL/L (3.6-5.0); TOTAL PROTEIN 6.3 GM/DL (6.4-8.2)
[2022-06-04 09:26] LABS: BASOPHILS # (AUTO) 0.1 10^3/uL (0.0-0.1); BASOPHILS % (AUTO) 1 % (0-10); EOSINOPHILS # (AUTO) 0.3 10^3/uL (0.0-0.3); EOSINOPHILS % (AUTO) 5 % (0-10); HEMATOCRIT 36 % (35-52); HEMOGLOBIN 11.6 g/dL (11.5-16.0); LYMPHOCYTES # (AUTO) 1.4 10^3/uL (1.0-4.0); LYMPHOCYTES % (AUTO) 21 % (12-44); MEAN CORPUSCULAR HEMOGLOBIN 28 pg (25-34); MEAN CORPUSCULAR HGB CONC 33 g/dL (32-36); MEAN CORPUSCULAR VOLUME 85 fL (80-99); MEAN PLATELET VOLUME 11.2 fL (9.0-12.2); MONOCYTES # (AUTO) 0.8 10^3/uL (0.0-1.0); MONOCYTES % (AUTO) 12 % (0-12); NEUTROPHILS # (AUTO) 4.3 10^3/uL (1.8-7.8); NEUTROPHILS % (AUTO) 61 % (42-75); PLATELET COUNT 251 10^3/uL (130-400); WHITE BLOOD COUNT 6.9 10^3/uL (4.3-11.0)
[2022-06-04 09:44] LABS: ALBUMIN 3.5 GM/DL (3.2-4.5); BILIRUBIN,TOTAL 0.3 MG/DL (0.1-1.0); CALCIUM 8.6 MG/DL (8.5-10.1); CREATININE SERUM 1.06 MG/DL (0.60-1.30); POTASSIUM 3.8 MMOL/L (3.6-5.0); TOTAL PROTEIN 6.4 GM/DL (6.4-8.2)
== END 2022-06-08 | disposition home or self-care (01) ==
LOC: ONC 08:35
PROVIDERS: ATTEND Internal Medicine
DX: Z51.11 Encounter for antineoplastic chemotherapy (principal); Z45.2 Encounter for adjustment and management of vascular access device; C50.911 Malignant neoplasm of unspecified site of right female breast; F19.10 Other psychoactive substance abuse, uncomplicated
CPT/HCPCS: 36591; 80053; 85025; 96375; 96413

== ENCOUNTER 2022-06-27 08:45 | Outpatient (RCR) | payer MEDICAID ==
[2022-06-27 09:00] LABS: BASOPHILS % (AUTO) 1 % (0-10); EOSINOPHILS # (AUTO) 0.2 10^3/uL (0.0-0.3); EOSINOPHILS % (AUTO) 2 % (0-10); HEMATOCRIT 37 % (35-52); HEMOGLOBIN 12.1 g/dL (11.5-16.0); LYMPHOCYTES # (AUTO) 1.5 10^3/uL (1.0-4.0); LYMPHOCYTES % (AUTO) 20 % (12-44); MEAN CORPUSCULAR HEMOGLOBIN 27 pg (25-34); MEAN CORPUSCULAR HGB CONC 33 g/dL (32-36); MEAN CORPUSCULAR VOLUME 82 fL (80-99); MEAN PLATELET VOLUME 11.6 fL (9.0-12.2); MONOCYTES % (AUTO) 13 % (0-12); NEUTROPHILS # (AUTO) 4.8 10^3/uL (1.8-7.8); NEUTROPHILS % (AUTO) 64 % (42-75); PLATELET COUNT 246 10^3/uL (130-400); WHITE BLOOD COUNT 7.5 10^3/uL (4.3-11.0)
[2022-06-27 09:18] LABS: ALBUMIN 3.7 GM/DL (3.2-4.5); BILIRUBIN,TOTAL 0.6 MG/DL (0.1-1.0); CALCIUM 9.2 MG/DL (8.5-10.1); CREATININE SERUM 0.92 MG/DL (0.60-1.30); POTASSIUM 3.9 MMOL/L (3.6-5.0); TOTAL PROTEIN 6.7 GM/DL (6.4-8.2)
== END 2022-07-09 | disposition home or self-care (01) ==
LOC: ONC 08:45
PROVIDERS: ATTEND Internal Medicine
DX: Z51.11 Encounter for antineoplastic chemotherapy (principal); Z45.2 Encounter for adjustment and management of vascular access device; C50.911 Malignant neoplasm of unspecified site of right female breast; F19.10 Other psychoactive substance abuse, uncomplicated
CPT/HCPCS: 80053; 85025; 96375; 96413; G0463; 36591; 99213

== ENCOUNTER 2022-07-18 08:37 | Outpatient (RCR) | payer MEDICAID ==
[2022-07-18 09:00] LABS: BASOPHILS % (AUTO) 0 % (0-10); EOSINOPHILS # (AUTO) 0.1 10^3/uL (0.0-0.3); EOSINOPHILS % (AUTO) 1 % (0-10); HEMATOCRIT 40 % (35-52); HEMOGLOBIN 13.2 g/dL (11.5-16.0); LYMPHOCYTES # (AUTO) 1.7 10^3/uL (1.0-4.0); LYMPHOCYTES % (AUTO) 18 % (12-44); MEAN CORPUSCULAR HEMOGLOBIN 27 pg (25-34); MEAN CORPUSCULAR HGB CONC 33 g/dL (32-36); MEAN CORPUSCULAR VOLUME 83 fL (80-99); MEAN PLATELET VOLUME 12.1 fL (9.0-12.2); MONOCYTES # (AUTO) 0.7 10^3/uL (0.0-1.0); MONOCYTES % (AUTO) 7 % (0-12); NEUTROPHILS % (AUTO) 73 % (42-75); PLATELET COUNT 281 10^3/uL (130-400); WHITE BLOOD COUNT 9.5 10^3/uL (4.3-11.0)
[2022-07-18 09:34] LABS: ALBUMIN 3.6 GM/DL (3.2-4.5); BILIRUBIN,TOTAL 0.3 MG/DL (0.1-1.0); CALCIUM 9.2 MG/DL (8.5-10.1); CREATININE SERUM 0.82 MG/DL (0.60-1.30); POTASSIUM 3.9 MMOL/L (3.6-5.0)
== END 2022-08-06 | disposition home or self-care (01) ==
LOC: ONC 08:37
PROVIDERS: ATTEND Internal Medicine Hematology & Oncology
DX: Z51.11 Encounter for antineoplastic chemotherapy (principal); Z45.2 Encounter for adjustment and management of vascular access device; C50.911 Malignant neoplasm of unspecified site of right female breast; F19.10 Other psychoactive substance abuse, uncomplicated
CPT/HCPCS: 36591; 80053; 85025; 96375; 96413

== ENCOUNTER → 2022-08-15 | Outpatient (CLI) | payer MEDICAID ==
[~2022-08-15] MED LIST changes: -ACETAMINOPHEN 325 MG TABLET PO PRN; -HEParin (CENTRAL IV FLUSH) 500 UNIT/5 ML SYR IV PRN; -NS IV 500 ML 500 ML IV SCH; -NS IV SCH; -TRASTUZUMAB PKRB IV SCH; -diphenhydrAMINE 50 MG/ML INJ (BENADRYL) IV PRN
== END ==
LOC: CARD 13:49
PROVIDERS: ATTEND Internal Medicine Hematology & Oncology
DX: Z51.11 Encounter for antineoplastic chemotherapy (principal)
CPT/HCPCS: 93306

== ENCOUNTER 2022-08-29 08:29 | Outpatient (RCR) | payer MEDICAID ==
[2022-08-08 10:02] LABS: BASOPHILS % (AUTO) 0 % (0-10); EOSINOPHILS # (AUTO) 0.3 10^3/uL (0.0-0.3); EOSINOPHILS % (AUTO) 4 % (0-10); HEMATOCRIT 35 % (35-52); HEMOGLOBIN 11.3 g/dL (11.5-16.0); LYMPHOCYTES # (AUTO) 1.1 10^3/uL (1.0-4.0); LYMPHOCYTES % (AUTO) 16 % (12-44); MEAN CORPUSCULAR HEMOGLOBIN 27 pg (25-34); MEAN CORPUSCULAR HGB CONC 33 g/dL (32-36); MEAN CORPUSCULAR VOLUME 83 fL (80-99); MEAN PLATELET VOLUME 11.6 fL (9.0-12.2); MONOCYTES # (AUTO) 0.5 10^3/uL (0.0-1.0); MONOCYTES % (AUTO) 7 % (0-12); NEUTROPHILS # (AUTO) 4.9 10^3/uL (1.8-7.8); NEUTROPHILS % (AUTO) 72 % (42-75); PLATELET COUNT 182 10^3/uL (130-400); WHITE BLOOD COUNT 6.8 10^3/uL (4.3-11.0)
[2022-08-08 10:15] LABS: ALBUMIN 3.3 GM/DL (3.2-4.5); POTASSIUM 3.9 MMOL/L (3.6-5.0)
[2022-08-08 10:16] LABS: CALCIUM 8.5 MG/DL (8.5-10.1)
[2022-08-08 10:18] LABS: TOTAL PROTEIN 5.9 GM/DL (6.4-8.2)
[2022-08-08 10:19] LABS: BILIRUBIN,TOTAL 0.4 MG/DL (0.1-1.0)
[2022-08-08 10:21] LABS: CREATININE SERUM 0.71 MG/DL (0.60-1.30)
[~2022-08-29 08:29] MED LIST changes: +ACETAMINOPHEN 325 MG TABLET PO PRN; +HEParin (CENTRAL IV FLUSH) 500 UNIT/5 ML SYR IV PRN; +NS IV 500 ML 500 ML IV SCH; +NS IV SCH; +TRASTUZUMAB PKRB IV SCH; +diphenhydrAMINE 50 MG/ML INJ (BENADRYL) IV PRN
[2022-08-29 09:06] LABS: ALBUMIN 3.4 GM/DL (3.2-4.5)
[2022-08-29 09:08] LABS: CALCIUM 8.4 MG/DL (8.5-10.1)
[2022-08-29 09:09] LABS: TOTAL PROTEIN 6.3 GM/DL (6.4-8.2)
[2022-08-29 09:11] LABS: BILIRUBIN,TOTAL 0.4 MG/DL (0.1-1.0)
[2022-08-29 09:13] LABS: CREATININE SERUM 0.86 MG/DL (0.60-1.30)
[2022-08-29 09:15] LABS: BASOPHILS % (AUTO) 1 % (0-10); EOSINOPHILS # (AUTO) 0.2 10^3/uL (0.0-0.3); EOSINOPHILS % (AUTO) 3 % (0-10); HEMATOCRIT 35 % (35-52); HEMOGLOBIN 11.5 g/dL (11.5-16.0); LYMPHOCYTES # (AUTO) 1.1 10^3/uL (1.0-4.0); LYMPHOCYTES % (AUTO) 17 % (12-44); MEAN CORPUSCULAR HEMOGLOBIN 27 pg (25-34); MEAN CORPUSCULAR HGB CONC 33 g/dL (32-36); MEAN CORPUSCULAR VOLUME 83 fL (80-99); MONOCYTES # (AUTO) 0.6 10^3/uL (0.0-1.0); MONOCYTES % (AUTO) 9 % (0-12); NEUTROPHILS # (AUTO) 4.6 10^3/uL (1.8-7.8); NEUTROPHILS % (AUTO) 70 % (42-75); PLATELET COUNT 212 10^3/uL (130-400); WHITE BLOOD COUNT 6.6 10^3/uL (4.3-11.0)
== END 2022-09-06 | disposition home or self-care (01) ==
LOC: ONC 08:29
PROVIDERS: ATTEND Internal Medicine Hematology & Oncology
DX: Z51.11 Encounter for antineoplastic chemotherapy (principal); Z45.2 Encounter for adjustment and management of vascular access device; C50.911 Malignant neoplasm of unspecified site of right female breast; F19.10 Other psychoactive substance abuse, uncomplicated
CPT/HCPCS: 36591; 80053; 85025; 96375; 96413

== ENCOUNTER 2022-10-10 08:43 | Outpatient (RCR) | payer MEDICARE, MEDICAID ==
[2022-10-10 09:07] LABS: BASOPHILS % (AUTO) 0 % (0-10); EOSINOPHILS # (AUTO) 0.2 10^3/uL (0.0-0.3); EOSINOPHILS % (AUTO) 3 % (0-10); HEMATOCRIT 36 % (35-52); HEMOGLOBIN 11.7 g/dL (11.5-16.0); LYMPHOCYTES # (AUTO) 0.8 10^3/uL (1.0-4.0); LYMPHOCYTES % (AUTO) 13 % (12-44); MEAN CORPUSCULAR HEMOGLOBIN 27 pg (25-34); MEAN CORPUSCULAR HGB CONC 33 g/dL (32-36); MEAN CORPUSCULAR VOLUME 83 fL (80-99); MEAN PLATELET VOLUME 10.9 fL (9.0-12.2); MONOCYTES # (AUTO) 0.6 10^3/uL (0.0-1.0); MONOCYTES % (AUTO) 9 % (0-12); NEUTROPHILS # (AUTO) 4.8 10^3/uL (1.8-7.8); NEUTROPHILS % (AUTO) 74 % (42-75); PLATELET COUNT 182 10^3/uL (130-400); WHITE BLOOD COUNT 6.5 10^3/uL (4.3-11.0)
[2022-10-10 09:28] LABS: ALBUMIN 3.2 GM/DL (3.2-4.5); BILIRUBIN,TOTAL 0.2 MG/DL (0.1-1.0); CALCIUM 8.5 MG/DL (8.5-10.1); CREATININE SERUM 0.78 MG/DL (0.60-1.30); POTASSIUM 3.6 MMOL/L (3.6-5.0)
== END 2022-11-06 | disposition home or self-care (01) ==
LOC: ONC 08:43
PROVIDERS: ATTEND Internal Medicine Hematology & Oncology
DX: Z45.2 Encounter for adjustment and management of vascular access device (principal); D05.11 Intraductal carcinoma in situ of right breast; Z79.899 Other long term (current) drug therapy
CPT/HCPCS: 36591; 80053; 84443; 85025

== ENCOUNTER → 2022-11-19 | Outpatient (CLI) | payer MEDICARE, MEDICAID ==
[~2022-11-19] MED LIST changes: -ACETAMINOPHEN 325 MG TABLET PO PRN; -HEParin (CENTRAL IV FLUSH) 500 UNIT/5 ML SYR IV PRN; -NS IV 500 ML 500 ML IV SCH; -NS IV SCH; -TRASTUZUMAB PKRB IV SCH; -diphenhydrAMINE 50 MG/ML INJ (BENADRYL) IV PRN
[2022-11-19 11:38] LABS: BASOPHILS % (AUTO) 0 % (0-10); EOSINOPHILS # (AUTO) 0.2 10^3/uL (0.0-0.3); EOSINOPHILS % (AUTO) 1 % (0-10); HEMATOCRIT 48 % (35-52); HEMOGLOBIN 15.5 g/dL (11.5-16.0); LYMPHOCYTES # (AUTO) 1.7 10^3/uL (1.0-4.0); LYMPHOCYTES % (AUTO) 14 % (12-44); MEAN CORPUSCULAR HEMOGLOBIN 27 pg (25-34); MEAN CORPUSCULAR HGB CONC 33 g/dL (32-36); MEAN CORPUSCULAR VOLUME 82 fL (80-99); MEAN PLATELET VOLUME 10.4 fL (9.0-12.2); MONOCYTES # (AUTO) 0.9 10^3/uL (0.0-1.0); MONOCYTES % (AUTO) 7 % (0-12); NEUTROPHILS # (AUTO) 9.3 10^3/uL (1.8-7.8); NEUTROPHILS % (AUTO) 77 % (42-75); PLATELET COUNT 388 10^3/uL (130-400); WHITE BLOOD COUNT 12.2 10^3/uL (4.3-11.0)
[2022-11-19 11:55] LABS: ALBUMIN 3.9 GM/DL (3.2-4.5); POTASSIUM 4.7 MMOL/L (3.6-5.0)
[2022-11-19 11:56] LABS: CALCIUM 10.5 MG/DL (8.5-10.1)
[2022-11-19 11:58] LABS: TOTAL PROTEIN 8.1 GM/DL (6.4-8.2)
[2022-11-19 11:59] LABS: BILIRUBIN,TOTAL 0.3 MG/DL (0.1-1.0)
[2022-11-19 12:01] LABS: CREATININE SERUM 1.29 MG/DL (0.60-1.30)
[2022-11-19 12:06] LABS: ERYTHROCYTE SEDIMENTATION RATE 6 MM/HR (0-20)
[2022-11-19 21:36] LABS: AMPHETAMINES URINE QUAL DS Positive (Negative); BARBITURATES URINE QUAL DS Negative (Negative); BENZODIAZEPINE URINE QUAL DS Negative (Negative)
== END ==
LOC: WOUNDCARE 10:03
PROVIDERS: ATTEND Family Medicine
DX: I96 Gangrene, not elsewhere classified (principal); E66.01 Morbid (severe) obesity due to excess calories; T43.655A Adverse effect of methamphetamines, initial encounter; L97.213 Non-pressure chronic ulcer of right calf with necrosis of muscle; B95.61 Methicillin susceptible Staphylococcus aureus infection as the cause of diseases classified elsewhere; R73.9 Hyperglycemia, unspecified; T43.652A Poisoning by methamphetamines intentional self-harm, initial encounter
CPT/HCPCS: 11043; 36415; 80053; 80307; 83036; 85025; 85652; 86141

== ENCOUNTER → 2022-11-27 | Outpatient (CLI) | payer MEDICARE, MEDICAID | LOC: WOUNDCARE 10:11 | PROVIDERS: ATTEND Family Medicine | DX: I96 Gangrene, not elsewhere classified (principal); L97.213 Non-pressure chronic ulcer of right calf with necrosis of muscle; T43.655A Adverse effect of methamphetamines, initial encounter; E66.01 Morbid (severe) obesity due to excess calories; B95.61 Methicillin susceptible Staphylococcus aureus infection as the cause of diseases classified elsewhere; T43.652A Poisoning by methamphetamines intentional self-harm, initial encounter; Z91.199 Patient's noncompliance with other medical treatment and regimen due to unspecified reason; Z68.41 Body mass index [BMI] 40.0-44.9, adult; R73.9 Hyperglycemia, unspecified | CPT/HCPCS: 11042 ==

== ENCOUNTER 2023-01-09 05:28 | Outpatient (CLI) | payer MEDICARE, MEDICAID ==
[~2023-01-09] VITALS: Ht 162.6 cm; Wt 109.5 kg
[2023-01-09] MEDS ORDERED: TAMO20TA2 PO (08:53)
== END 2023-01-09 09:41 | disposition home or self-care (01) ==
LOC: PREOP 05:28
PROVIDERS: ATTEND Surgery
DX: Z01.818 Encounter for other preprocedural examination (principal)

== ENCOUNTER → 2023-01-16 | Outpatient (CLI) | payer MEDICARE, MEDICAID ==
[~2023-01-16] MED LIST changes: +HOLD METFORMIN - RECEIVED CONTRAST 20 ML VIAL IV SCH; +IOHEXOL 350 MG/ML 100 ML (OMNIPAQUE 350) VIAL IV ONE; +NS 100 ML (IVPB) BAG IV ONE; +TAMO20TA2 PO
--- NOTE | 2023-01-16 08:50 | Diagnostic Imaging Report ---
INDICATION: Shortness of breath, elevated D-dimer. Patient's history of breast carcinoma. TECHNIQUE: TECHNIQUE: After intravenous administration of contrast, thin section axial CT angiography of the chest was performed. 3D MIP reconstructions were made. All CT scans use one or more of the following dose optimizing techniques: automated exposure control, MA and/or KvP adjustment based on a patient size and exam type, or iterative reconstruction. No prior studies are available for comparison. A left chest wall port has tip in SVC. Evaluation of pulmonary arterial system is without evidence of thromboembolism. No definite filling defects are seen within central, lobar segmental branches. Thoracic aorta is normal caliber. There is no dissection. No pericardial or pleural fluid is identified. There is a large hiatal hernia. No pulmonary infiltrates, nodules or masses are detected. Upper abdomen is unremarkable. IMPRESSION: 1. No evidence of pulmonary embolism or acute aortic disease. 2. A large hiatal hernia. Dictated by: Dictated on workstation # [id number]
== END ==
LOC: RAD 07:11
PROVIDERS: ATTEND Pediatrics
DX: K44.9 Diaphragmatic hernia without obstruction or gangrene (principal); R79.1 Abnormal coagulation profile; Z85.3 Personal history of malignant neoplasm of breast
CPT/HCPCS: 71275

== ENCOUNTER 2023-03-20 13:20 | Outpatient (RCR) | payer MEDICARE, MEDICAID ==
[~2023-03-20 13:20] MED LIST changes: -HOLD METFORMIN - RECEIVED CONTRAST 20 ML VIAL IV SCH; -IOHEXOL 350 MG/ML 100 ML (OMNIPAQUE 350) VIAL IV ONE; -NS 100 ML (IVPB) BAG IV ONE
[2023-03-20 14:37] LABS: BASOPHILS % (AUTO) 1 % (0-10); EOSINOPHILS # (AUTO) 0.1 10^3/uL (0.0-0.3); EOSINOPHILS % (AUTO) 1 % (0-10); HEMATOCRIT 41 % (35-52); HEMOGLOBIN 13.1 g/dL (11.5-16.0); LYMPHOCYTES # (AUTO) 1.5 10^3/uL (1.0-4.0); LYMPHOCYTES % (AUTO) 17 % (12-44); MEAN CORPUSCULAR HEMOGLOBIN 27 pg (25-34); MEAN CORPUSCULAR HGB CONC 32 g/dL (32-36); MEAN CORPUSCULAR VOLUME 85 fL (80-99); MEAN PLATELET VOLUME 11.5 fL (9.0-12.2); MONOCYTES # (AUTO) 0.7 10^3/uL (0.0-1.0); MONOCYTES % (AUTO) 8 % (0-12); NEUTROPHILS # (AUTO) 6.4 10^3/uL (1.8-7.8); NEUTROPHILS % (AUTO) 73 % (42-75); PLATELET COUNT 244 10^3/uL (130-400); WHITE BLOOD COUNT 8.8 10^3/uL (4.3-11.0)
[2023-03-20 14:56] LABS: ALBUMIN 3.9 GM/DL (3.2-4.5); BILIRUBIN,TOTAL 0.3 MG/DL (0.1-1.0); CALCIUM 8.5 MG/DL (8.5-10.1); CREATININE SERUM 0.8 MG/DL (0.60-1.30); TOTAL PROTEIN 7.1 GM/DL (6.4-8.2)
== END 2023-04-08 | disposition home or self-care (01) ==
LOC: ONC 13:20
PROVIDERS: ATTEND Internal Medicine Hematology & Oncology
DX: Z45.2 Encounter for adjustment and management of vascular access device (principal); C50.911 Malignant neoplasm of unspecified site of right female breast
CPT/HCPCS: 36591; 80053; 85025; 99214

== ENCOUNTER → 2023-04-10 | Outpatient (CLI) | payer MEDICARE, MEDICAID ==
--- NOTE | 2023-04-10 19:55 | Diagnostic Imaging Report ---
INDICATION: Long-term tamoxifen use, assess endometrial lining. TECHNIQUE: Pelvic sonography performed with transabdominal and transvaginal views. FINDINGS: The uterus measured 8.3 x 5.1 x 6.4 cm and is retroverted. Endometrium measured 1.2 cm which is thickened, with some fluid in the endometrium, and the endometrium appeared open to the cervical canal. The right ovary measured 2.1 x 0.8 x 1.4 cm and contains color flow. There is no focal right ovarian lesion. Left ovary was nonvisualized. There is no free fluid. IMPRESSION: Retroverted uterus. There is thickening of the endometrium with fluid in the endometrium; the endometrium appears to be fluid-filled down to the level of the cervix. No myometrial lesion was seen. Normal-appearing right ovary. Left ovary nonvisualized. Dictated by: Dictated on workstation # [id number]
== END ==
LOC: RAD 14:31
PROVIDERS: ATTEND Obstetrics & Gynecology
DX: N85.4 Malposition of uterus (principal); R93.89 Abnormal findings on diagnostic imaging of other specified body structures; Z79.810 Long term (current) use of selective estrogen receptor modulators (SERMs)
CPT/HCPCS: 76830; 76856

== ENCOUNTER → 2023-05-05 | Outpatient (CLI) | payer MEDICARE ==
--- NOTE | 2023-05-05 16:11 | Diagnostic Imaging Report ---
INDICATION: Routine screening. COMPARISON: 07/23/2021. TECHNIQUE: 2D and 3D bilateral screening mammography was performed with CAD. FINDINGS: Scattered fibroglandular densities are identified bilaterally. Post lumpectomy changes in the outer right breast are noted. There is a biopsy clip in the central right breast. No discrete mass is identified. No malignant-appearing microcalcifications are identified. There is a chest wall port hub in the left axilla. The right axilla is unremarkable. IMPRESSION: Post therapeutic changes in the right breast. No definite residual or recurrent mass or malignant-appearing microcalcifications are identified. ACR BI-RADS Category 2: Benign findings. Result letter will be mailed to the patient. Note: At least 10% of breast cancer is not imaged by mammography. Dictated by: Dictated on workstation # [id number]
== END ==
LOC: RAD 15:30
PROVIDERS: ATTEND Internal Medicine Hematology & Oncology
DX: Z12.31 Encounter for screening mammogram for malignant neoplasm of breast (principal); C50.911 Malignant neoplasm of unspecified site of right female breast
CPT/HCPCS: 77063; 77067